=== PATIENT | male | born 1975 | race Caucasian/White ===

== ENCOUNTER 2021-02-11 12:02 | Inpatient (IN) ==
[2021-02-11] MEDS ORDERED: MOTRIN TAB 800 MG PO PRN ×2 (12:25→14:31)
[2021-02-11] MEDS ORDERED: MILK OF MAGNESIA PO PRN ×2 (12:25→14:31)
[2021-02-11] MEDS ORDERED: LIBRIUM PO PRN ×2 (12:25→14:31)
[2021-02-11] MEDS ORDERED: MAALOX or MYLANTA PO PRN ×2 (12:25→14:31)
[2021-02-11] MEDS ORDERED: KAOPECTATE (NEW FORMULA) PO PRN ×2 (12:25→14:31)
[2021-02-11] MEDS ORDERED: NS 1,000 ML IV 1,000 ML IV SCH (13:00)
[2021-02-11 13:02] LABS: BASOPHILS # (AUTO) 0.1 X10^3/uL (0.0-0.1); BASOPHILS % (AUTO) 0.4 % (0.2-1.0); EOSINOPHILS % (AUTO) 0.1 % (0.9-2.9); HEMOGLOBIN 14.1 g/dL (13.5-18.0); LYMPHOCYTES # (AUTO) 1.9 X10^3/uL (1.3-2.9); LYMPHOCYTES % (AUTO) 10.8 % (21.0-51.0); MEAN CORPUSCULAR HEMOGLOBIN 37.8 pg (27.0-34.0); MEAN CORPUSCULAR HGB CONC 34.4 g/dL (33.0-35.0); MEAN CORPUSCULAR VOLUME 109.9 fL (80.0-100.0); MEAN PLATELET VOLUME 8.5 fL (7.4-11.0); MONOCYTES # (AUTO) 1.5 x10^3/uL (0.3-0.8); MONOCYTES % (AUTO) 8.3 % (0.0-13.0); NEUTROPHILS # (AUTO) 14.1 x10^3/uL (2.2-4.8); NEUTROPHILS % (AUTO) 80.4 % (42.0-75.0); PLATELET COUNT 295 X10^3/uL (150.0-450.0); RED BLOOD COUNT 3.74 X10^6/uL (4.7-6.0); RED CELL DISTRIBUTION WIDTH 17.9 % (11.6-16.5); WHITE BLOOD COUNT 17.6 X10^3/uL (3.6-10.0)
[2021-02-11] MEDS ORDERED: ATIVAN INJ 2 MG VIAL IVP ONE (13:16)
[2021-02-11 13:25] LABS: ANISOCYTOSIS SLIGHT; PLATELET MORPHOLOGY COMMENT NORMAL (NORMAL)
[2021-02-11 13:27] LABS: ALANINE AMINOTRANSFERASE 58 Units/L (12-78); ALBUMIN 3.8 g/dL (3.4-5.0); ALKALINE PHOSPHATASE 72 Units/L (46-116); ASPARTATE AMINO TRANSFERASE 60 Units/L (15-37); BLOOD UREA NITROGEN 28 mg/dL (7-18); CARBON DIOXIDE 25.8 mmol/L (21-32); CHLORIDE 101 mmol/L (98-107); CKMB % 0.3 % (<4); CREATINE KINASE 340 Units/L (39-308); CREATINE KINASE MB < 1.0 ng/mL (0-4.0); MAGNESIUM 1.8 mg/dL (1.7-2.9); SODIUM 140 mmol/L (136-145); TOTAL PROTEIN 8.6 g/dL (6.4-8.2); TROPONIN I < 0.02 ng/mL (0-1.5)
[2021-02-11 13:42] LABS: CREATININE 1.91 mg/dL (0.70-1.30); eGFR NON BLACK RACES 41 (>60)
[2021-02-11 13:51] LABS: BLOOD ALCOHOL < 3.0 mg/dL (0-19.9)
[2021-02-11 14:00] VITALS: BMI 32.8
[2021-02-11] MEDS: ROCEPHIN 1 GRAM IV PREMIX 1 G/50 ML IV.SOLN. IV SCH (15:21)
[2021-02-11] MEDS: MVI IV SCH ×8 (15:22→23:11)
[2021-02-11] MEDS: THIAMINE HCL IV SCH ×8 (15:22→23:11)
[2021-02-11] MEDS: NS IV SCH ×8 (15:22→23:11)
[2021-02-11] MEDS: [UNRECOGNIZED DRUG - OTHER] IV SCH ×8 (15:22→23:11)
[2021-02-11 15:28] LABS: BILIRUBIN,URINE 2+ (NEGATIVE); BLOOD/HEMOGLOBIN,URINE 1+ (NEGATIVE); GLUCOSE, URINE NEGATIVE (NEGATIVE); KETONES,URINE 2+ (NEGATIVE); LEUKOCYTE ESTERASE ,URINE 1+ (NEGATIVE); NITRITES,URINE NEGATIVE (NEGATIVE); PROTEIN,URINE 3+ (NEGATIVE); UROBILINOGEN,URINE 3+ (NORMAL)
[2021-02-11 15:38] LABS: APPEARANCE,URINE CLOUDY (CLEAR); COLOR,URINE AMBER (YELLOW)
[2021-02-11 15:39] LABS: AMORPHOUS SEDIMENT,UR 2+ /HPF (NEGATIVE); BACTERIA,URINE TRACE /HPF (NEGATIVE); MUCUS,URINE NUMEROUS /HPF (NEGATIVE); SQUAMOUS EPITHELIAL CELL,UR FEW /HPF (NEGATIVE)
--- NOTE | 2021-02-11 16:19 | RAD ---
CHEST, 1 VIEWHISTORY: SHORTNESS OF BREATHStudy: Single view of the chest.Comparison:NoneFindings:The cardiomediastinal silhouette is normal.No focal consolidations, pleural effusions or pneumothorax. Osseous structures demonstrate no acute abnormality.IMPRESSION:1. No acute cardiopulmonary process.Electronically signed by: LANE IVY (Feb 11, 2021 16:17:45)
[2021-02-11] MEDS: PHENOBARBITAL SODIUM INJ 65 MG VIAL IM PRN ×2 (17:09→23:11)
[2021-02-11] MEDS: PHENOBARBITAL TAB 30 MG (32.4MG) PO SCH ×2 (17:09→20:08)
[2021-02-11] MEDS ORDERED: SOLU-Medrol 125 MG VIAL IVP ONE (18:18)
[2021-02-11] MEDS: VALIUM INJ IVP PRN (18:41)
[2021-02-11 19:19] LABS: CKMB % 0.3 % (<4); CREATINE KINASE 341 Units/L (39-308); CREATINE KINASE MB < 1.0 ng/mL (0-4.0); TROPONIN I < 0.02 ng/mL (0-1.5)
[2021-02-11] MEDS ORDERED: AMBIEN PO SCH (21:00)
[2021-02-11] MEDS ORDERED: PHENERGAN INJ 25 MG IM ONE (23:45)
[2021-02-11] MEDS ORDERED: ZOFRAN TAB 4 MG PO PRN (23:48)
[2021-02-12 01:30] LABS: CKMB % 0.2 % (<4); CREATINE KINASE 542 Units/L (39-308); CREATINE KINASE MB < 1.0 ng/mL (0-4.0); TROPONIN I < 0.02 ng/mL (0-1.5)
[2021-02-12] MEDS: THIAMINE HCL IV SCH ×16 (02:58→23:32)
[2021-02-12] MEDS: MVI IV SCH ×16 (02:58→23:32)
[2021-02-12] MEDS: NS IV SCH ×16 (02:58→23:32)
[2021-02-12] MEDS: [UNRECOGNIZED DRUG - OTHER] IV SCH ×16 (02:58→23:32)
--- NOTE | 2021-02-12 06:01 | RAD ---
HISTORYCough, shortness of breathSTUDYChest AP [id number] inflation accentuates the heart size. It is likely within normal limits. The yvonne are normal. The lung gregg are clear. No pleural effusions are identified. Bony thorax is unremarkable.IMPRESSIONNo significant abnormality identifiedElectronically signed by: NEWTON TEJEDA (Feb 12, 2021 05:59:04)
[2021-02-12 06:10] LABS: BASOPHILS % (AUTO) 0.1 % (0.2-1.0); HEMATOCRIT 38.9 % (42.0-54.0); HEMOGLOBIN 13.3 g/dL (13.5-18.0); LYMPHOCYTES # (AUTO) 1.1 X10^3/uL (1.3-2.9); LYMPHOCYTES % (AUTO) 6.6 % (21.0-51.0); MEAN CORPUSCULAR HEMOGLOBIN 37.5 pg (27.0-34.0); MEAN CORPUSCULAR HGB CONC 34.2 g/dL (33.0-35.0); MEAN CORPUSCULAR VOLUME 109.6 fL (80.0-100.0); MEAN PLATELET VOLUME 9.1 fL (7.4-11.0); MONOCYTES # (AUTO) 0.6 x10^3/uL (0.3-0.8); MONOCYTES % (AUTO) 3.9 % (0.0-13.0); NEUTROPHILS # (AUTO) 14.4 x10^3/uL (2.2-4.8); NEUTROPHILS % (AUTO) 89.4 % (42.0-75.0); PLATELET COUNT 282 X10^3/uL (150.0-450.0); RED BLOOD COUNT 3.55 X10^6/uL (4.7-6.0); WHITE BLOOD COUNT 16.1 X10^3/uL (3.6-10.0)
[2021-02-12 06:42] LABS: ALANINE AMINOTRANSFERASE 52 Units/L (12-78); ALBUMIN 3.5 g/dL (3.4-5.0); ALKALINE PHOSPHATASE 63 Units/L (46-116); ASPARTATE AMINO TRANSFERASE 56 Units/L (15-37); BLOOD UREA NITROGEN 42 mg/dL (7-18); CALCIUM 9.1 mg/dL (8.5-10.1); CHLORIDE 99 mmol/L (98-107); COR NA(FOR HYPERGLY) 141 mmol/L (136-145); CREATININE 1.99 mg/dL (0.70-1.30); MAGNESIUM 1.7 mg/dL (1.7-2.9); SODIUM 140 mmol/L (136-145); eGFR NON BLACK RACES 39 (>60)
[2021-02-12] MEDS ORDERED: POTASSIUM CHL 60 MEQ/NS 0.45% 500 ML IV PRN (06:46)
[2021-02-12] MEDS ORDERED: K-RIDER 10 MEQ/NS 100 ML 10 MEQ/100 ML BAG IV PRN (06:46)
[2021-02-12] MEDS ORDERED: POTASSIUM CHLORIDE LIQ 20 MEQ UDC PO PRN (06:46)
[2021-02-12] MEDS ORDERED: MICRO K EXTEN CAP 10 MEQ PO PRN (06:46)
[2021-02-12] MEDS ORDERED: K-DUR TAB 20 MEQ PO PRN (06:46)
[2021-02-12] MEDS ORDERED: POTASSIUM CHL 40 MEQ/NS 0.45% 500 ML IV PRN (06:46)
[2021-02-12] MEDS: PHENOBARBITAL SODIUM INJ 65 MG VIAL IM PRN (07:08)
[2021-02-12 07:30] LABS: PLATELET MORPHOLOGY COMMENT NORMAL (NORMAL)
[2021-02-12 07:31] LABS: ANISOCYTOSIS SLIGHT
[2021-02-12] MEDS: ROCEPHIN 1 GRAM IV PREMIX 1 G/50 ML IV.SOLN. IV SCH (08:41)
[2021-02-12] MEDS: PHENOBARBITAL TAB 30 MG (32.4MG) PO SCH ×4 (08:41→20:47)
[2021-02-12] MEDS: SOLU-Medrol 40 MG VIAL IVP SCH ×2 (08:42→20:47)
[2021-02-12] MEDS: VALIUM INJ IVP PRN ×2 (08:42→20:48)
[2021-02-12] MEDS ORDERED: HALDOL INJ ONE (09:36)
[2021-02-12] MEDS: HALDOL INJ IM ONE ×2 (09:45→10:02)
[2021-02-12] MEDS: KLOR-CON PO PRN (11:32)
--- NOTE | 2021-02-12 11:44 | DR.H&P ---
H&P History & Physical for Day of: H&P Date: 02/11/21 Chief Complaint Chief Complaint: AMS/ SOB/Nonproductive cough Allergies Allergies Allergy/AdvReac Type Severity Reaction Status Date / Time No Known Drug Allergies Allergy Verified 02/11/21 13:01 History of Present Illness History of Present Illness: 45 year old WM with 2 weeks history of cough and increasing SOB. His mother brought him to my office because she said he was talking out of his head. Upon questioning him he did state it had been 4 days since he last drank ETOH. I know him to be a heavy drinker and thought it best to admit him to hospital for inpatient ETOH detox and to also check for a source of his coughing and low grade fever. Patient is having audible hallucinations in my office today. Past Medical History Past Medical History: Depression, Migraines, Headaches and Hypertension Past Surgical History Surgical History: Ortho Surgery (Right distal biceps tendon repair/reattachment) Family History Family Medical History: Hypertension Social History Does patient currently use any type of tobacco product: Yes Have you used tobacco products in the last 12 months: Yes Type of Tobacco Use: Cigarettes How many years tobacco product used: 30 Does any household member use tobacco: No Alcohol Use: DAILY Drug Use: Prescription Drugs Medications Home Medications: No Known Drug Allergies Allergy (Verified 02/11/21 13:01) Labs Result Diagrams: 02/12/21 05:06 02/12/21 10:14 Labs: 02/11/21 15:36 Sputum - Expectorated Sputum Sputum Culture - Preliminary 02/11/21 15:36 Sputum - Expectorated Sputum - Final 02/11/21 15:20 Urine,Clean Catch Urine Culture - Preliminary Laboratory WBC 16.1 X10^3/uL (3.6-10.0) H 02/12/21 05:06 RBC 3.55 X10^6/uL (4.7-6.0) L 02/12/21 05:06 Hgb 13.3 g/dL (13.5-18.0) L 02/12/21 05:06 Hct 38.9 % (42.0-54.0) L 02/12/21 05:06 MCV 109.6 fL (80.0-100.0) H 02/12/21 05:06 MCH 37.5 pg (27.0-34.0) H 02/12/21 05:06 MCHC 34.2 g/dL (33.0-35.0) 02/12/21 05:06 RDW 18.0 % (11.6-16.5) H 02/12/21 05:06 Plt Count 282 X10^3/uL (150.0-450.0) 02/12/21 05:06 Plt Count Comment Adequate (ADEQUATE) 02/12/21 05:06 MPV 9.1 fL (7.4-11.0) 02/12/21 05:06 Neut % (Auto) 89.4 % (42.0-75.0) H 02/12/21 05:06 Lymph % (Auto) 6.6 % (21.0-51.0) L 02/12/21 05:06 [place] % (Auto) 3.9 % (0.0-13.0) 02/12/21 05:06 Eos % (Auto) 0.0 % (0.9-2.9) L 02/12/21 05:06 Baso % (Auto) 0.1 % (0.2-1.0) L 02/12/21 05:06 Neut # (Auto) 14.4 x10^3/uL (2.2-4.8) H 02/12/21 05:06 Lymph # (Auto) 1.1 X10^3/uL (1.3-2.9) L 02/12/21 05:06 [place] # (Auto) 0.6 x10^3/uL (0.3-0.8) 02/12/21 05:06 Eos # (Auto) 0.0 x10^3/uL (0.0-0.2) 02/12/21 05:06 Baso # (Auto) 0.0 X10^3/uL (0.0-0.1) 02/12/21 05:06 Absolute Nucleated RBC 0.2 /100WBC 02/12/21 05:06 Plt Morphology Comment Normal (NORMAL) 02/12/21 05:06 RBC Morphology Abnormal (NORMAL) 02/12/21 05:06 Anisocytosis Slight A 02/12/21 05:06 Microcytosis Environmental Communications Specialist 02/11/21 12:50 Macrocytosis 1+ A 02/12/21 05:06 Sodium 140 mmol/L (136-145) 02/12/21 05:06 Corrected Sodium 141 mmol/L (136-145) 02/12/21 05:06 Potassium 3.0 mmol/L (3.5-5.1) L* 02/12/21 10:14 Chloride 99 mmol/L (98-107) 02/12/21 05:06 Carbon Dioxide 23.0 mmol/L (21-32) 02/12/21 05:06 BUN 42 mg/dL (7-18) H 02/12/21 05:06 Creatinine 1.99 mg/dL (0.70-1.30) H 02/12/21 05:06 Est GFR (MDRD) Af Amer 47 (>60) L 02/12/21 05:06 Est GFR (MDRD) Non-Af 39 (>60) L 02/12/21 05:06 Glucose 143 mg/dL (65-99) H 02/12/21 05:06 Lactic Acid 1.8 mmol/L (0.4-2.0) 02/11/21 12:50 Calcium 9.1 mg/dL (8.5-10.1) 02/12/21 05:06 Corrected Calcium TNP 02/12/21 05:06 Magnesium 1.7 mg/dL (1.7-2.9) 02/12/21 05:06 Magnesium 1.8 mg/dL (1.7-2.9) 02/12/21 05:06 Total Bilirubin 1.30 mg/dL (0.2-1.0) H 02/12/21 05:06 AST 56 Units/L (15-37) H 02/12/21 05:06 ALT 52 Units/L (12-78) 02/12/21 05:06 Alkaline Phosphatase 63 Units/L (46-116) 02/12/21 05:06 Creatine Kinase 542 Units/L (39-308) H 02/12/21 00:54 CK-MB (CK-2) < 1.0 ng/mL (0-4.0) 02/12/21 00:54 CK/CKMB % Calc 0.2 % (<4) 02/12/21 00:54 Troponin I < 0.02 ng/mL (0-1.5) 02/12/21 00:54 Total Protein 8.0 g/dL (6.4-8.2) 02/12/21 05:06 Albumin 3.5 g/dL (3.4-5.0) 02/12/21 05:06 Globulin 4.5 g/dL (2.5-4.5) 02/12/21 05:06 Albumin/Globulin Ratio 0.8 Ratio (1.1-2.1) L 02/12/21 05:06 Specimen Type Clean catch urine 02/11/21 15:00 Urine Color Lanny (YELLOW) 02/11/21 15:00 Urine Appearance Cloudy (CLEAR) 02/11/21 15:00 Urine pH 5.0 (5.0 - 8.0) 02/11/21 15:00 Ur Specific [place] 1.020 (1.000-1.030) 02/11/21 15:00 Urine Protein 3+ (NEGATIVE) 02/11/21 15:00 Urine Glucose (UA) Negative (NEGATIVE) 02/11/21 15:00 Urine Ketones 2+ (NEGATIVE) 02/11/21 15:00 Urine Occult Blood 1+ (NEGATIVE) 02/11/21 15:00 Urine Nitrite Negative (NEGATIVE) 02/11/21 15:00 Urine Bilirubin 2+ (NEGATIVE) 02/11/21 15:00 Urine Urobilinogen 3+ (NORMAL) 02/11/21 15:00 Ur Leukocyte Esterase 1+ (NEGATIVE) 02/11/21 15:00 Urine RBC 5-10 /HPF (0-3) A 02/11/21 15:00 Urine WBC 5-10 /HPF (0-5) A 02/11/21 15:00 Ur Squamous Epith Cells Few /HPF (NEGATIVE) 02/11/21 15:00 Amorphous Sediment 2+ /HPF (NEGATIVE) 02/11/21 15:00 Urine Bacteria Trace /HPF (NEGATIVE) 02/11/21 15:00 Urine Mucus Numerous /HPF (NEGATIVE) 02/11/21 15:00 Ur Culture Indicated? No/not indicated 02/11/21 15:00 Urine Opiates Screen Positive (NEG=<300) 02/11/21 15:00 Urine Methadone Screen Negative (NEG=<300) 02/11/21 15:00 Ur Barbiturates Screen Negative (NEG=<200) 02/11/21 15:00 Ur Phencyclidine Scrn Negative (NEG=<25) 02/11/21 15:00 Ur Amphetamines Screen Negative (NEG=<1000) 02/11/21 15:00 U Benzodiazepines Scrn Positive (NEG=<200) 02/11/21 15:00 Urine Cocaine Screen Negative (NEG=<300) 02/11/21 15:00 U Marijuana (THC) Screen Negative (NEG=<50) 02/11/21 15:00 Ethyl Alcohol mg/dL < 3.0 mg/dL (0-19.9) 02/11/21 12:50 Review of Systems Constitutional: Fever, Chills, Sweats and Weakness ENT: No Symptoms Reported Respiratory: Cough and SOB with Excertion Gastrointestinal: Nausea, Vomiting, Abdominal Pain and Diarrhea Genitourinary: No Symptoms Reported Musculoskeletal: Arm Pain Skin: No Symptoms Reported Neurological: Weakness, Incoordination and Confusion Physical Exam Vital Signs: Temperature 98.7 F Pulse Rate [Bilateral Radial] 122 Respiratory Rate 20 Blood Pressure [Right Arm] 175/93 O2 Sat by Pulse Oximetry 91 Oriented: Not Oriented Eyes: Normal Ear: Normal Nose: Normal Throat: Normal Respiratory: Clear Throughout Cardiovascular: Tachycardia : Normal Auscultation: Bowel Sounds: Normal Palpation: Normal Tenderness: RLQ, LUQ, LLQ and Mild Skin: Diaphoresis Musculoskeletal: Normal Psychiatric: Anxiety and Agitation Mood Description: Suspicious and Anxious Affect: Anxious and Hysterical Speech Pattern: Unclear Assessment/Plan (1) AMS (altered mental status): Narrative Support Text: Suspect due to ETOH detox and or Opioid detox or both. Status: Acute Plan: Monitor for improvment. (2) Alcohol use disorder: Status: Acute Plan: Alcohol Detox protocol with IV PRN Valium. (3) Alcohol withdrawal hallucinosis: Narrative Support Text: Needs inpatient detox to avoid seizures since patient seems to be having quite significant detox symptoms. Status: Acute Plan: Alcohol detox protocol. Phenobarbital loading for seizure prevention. (4) Cough: Status: Acute Plan: check CXR. (5) Low grade fever: Status: Acute Plan: Will check for infection with Blood cultures, sputum cultures, UA and CXR. Review H&P Reviewed: Yes Patient was examined?: Yes
--- NOTE | 2021-02-12 12:02 | PCM.PROG ---
Progress Note Progress Note for Day of Date of Exam: 02/12/21 Subjective Subjective: Patient has been agitated off and on since admission. The IV Valium seems to help but only for a short time. Last night he vomited multiple time and was given IM Phenergan 25 mg and also Zofran was ordered. Yesterdays labs showed a leukocytosis of 17,000 and 16,000 this am. Volume contraction noted on yesterdays labs and is slightly worse this am with worsening rhabdomyolysis. He was given NS at 125 ml/hr. He reports this morning he didn't sleep at all. As the morning progressed he became paranoid and was walking the halls and refused IM Haldol until I spoke with him. He did end up taking it after we spoke. Potassium is noted to be low this am and he was started on replacement protocol. Past Medical Family Social History Past Med/Fam/Surg Hx: No changes since H&P Allergies: Allergies No Known Drug Allergies Allergy (Verified 02/11/21 13:01) Vital Signs and I&O's Vital Signs: Temperature 99.4 F Pulse Rate [Bilateral Radial] 102 Respiratory Rate 20 Blood Pressure [Right Arm] 124/94 O2 Sat by Pulse Oximetry 92 Intake and Output: Intake & Output 02/09/21 02/10/21 02/11/21 02/12/21 11:59 11:59 11:59 11:59 Intake Total 1467 / 1467 Output Total 800 / 800 Balance 667 / 667 Physical Exam Oriented: Not Oriented Eyes: Normal Ear: Normal Nose: Normal Throat: Normal Cardiovascular: Tachycardia : Normal Auscultation: Bowel Sounds: Normal Tenderness: RLQ, LUQ, LLQ and Mild Skin: Diaphoresis Musculoskeletal: Normal Psychiatric: Anxiety and Agitation Mood Description: Suspicious and Anxious Affect: Anxious and Hysterical Speech Pattern: Unclear Laboratory and Diagnostics Result Diagrams: 02/12/21 05:06 02/12/21 10:14 Labs: 02/11/21 15:36 Sputum - Expectorated Sputum Sputum Culture - Preliminary 02/11/21 15:36 Sputum - Expectorated Sputum - Final 02/11/21 15:20 Urine,Clean Catch Urine Culture - Preliminary Laboratory WBC 16.1 X10^3/uL (3.6-10.0) H 02/12/21 05:06 RBC 3.55 X10^6/uL (4.7-6.0) L 02/12/21 05:06 Hgb 13.3 g/dL (13.5-18.0) L 02/12/21 05:06 Hct 38.9 % (42.0-54.0) L 02/12/21 05:06 MCV 109.6 fL (80.0-100.0) H 02/12/21 05:06 MCH 37.5 pg (27.0-34.0) H 02/12/21 05:06 MCHC 34.2 g/dL (33.0-35.0) 02/12/21 05:06 RDW 18.0 % (11.6-16.5) H 02/12/21 05:06 Plt Count 282 X10^3/uL (150.0-450.0) 02/12/21 05:06 Plt Count Comment Adequate (ADEQUATE) 02/12/21 05:06 MPV 9.1 fL (7.4-11.0) 02/12/21 05:06 Neut % (Auto) 89.4 % (42.0-75.0) H 02/12/21 05:06 Lymph % (Auto) 6.6 % (21.0-51.0) L 02/12/21 05:06 [place] % (Auto) 3.9 % (0.0-13.0) 02/12/21 05:06 Eos % (Auto) 0.0 % (0.9-2.9) L 02/12/21 05:06 Baso % (Auto) 0.1 % (0.2-1.0) L 02/12/21 05:06 Neut # (Auto) 14.4 x10^3/uL (2.2-4.8) H 02/12/21 05:06 Lymph # (Auto) 1.1 X10^3/uL (1.3-2.9) L 02/12/21 05:06 [place] # (Auto) 0.6 x10^3/uL (0.3-0.8) 02/12/21 05:06 Eos # (Auto) 0.0 x10^3/uL (0.0-0.2) 02/12/21 05:06 Baso # (Auto) 0.0 X10^3/uL (0.0-0.1) 02/12/21 05:06 Absolute Nucleated RBC 0.2 /100WBC 02/12/21 05:06 Plt Morphology Comment Normal (NORMAL) 02/12/21 05:06 RBC Morphology Abnormal (NORMAL) 02/12/21 05:06 Anisocytosis Slight A 02/12/21 05:06 Microcytosis [employer] Machine Operator 02/11/21 12:50 Macrocytosis 1+ A 02/12/21 05:06 Sodium 140 mmol/L (136-145) 02/12/21 05:06 Corrected Sodium 141 mmol/L (136-145) 02/12/21 05:06 Potassium 3.0 mmol/L (3.5-5.1) L* 02/12/21 10:14 Chloride 99 mmol/L (98-107) 02/12/21 05:06 Carbon Dioxide 23.0 mmol/L (21-32) 02/12/21 05:06 BUN 42 mg/dL (7-18) H 02/12/21 05:06 Creatinine 1.99 mg/dL (0.70-1.30) H 02/12/21 05:06 Est GFR (MDRD) Af Amer 47 (>60) L 02/12/21 05:06 Est GFR (MDRD) Non-Af 39 (>60) L 02/12/21 05:06 Glucose 143 mg/dL (65-99) H 02/12/21 05:06 Lactic Acid 1.8 mmol/L (0.4-2.0) 02/11/21 12:50 Calcium 9.1 mg/dL (8.5-10.1) 02/12/21 05:06 Corrected Calcium TNP 02/12/21 05:06 Magnesium 1.7 mg/dL (1.7-2.9) 02/12/21 05:06 Magnesium 1.8 mg/dL (1.7-2.9) 02/12/21 05:06 Total Bilirubin 1.30 mg/dL (0.2-1.0) H 02/12/21 05:06 AST 56 Units/L (15-37) H 02/12/21 05:06 ALT 52 Units/L (12-78) 02/12/21 05:06 Alkaline Phosphatase 63 Units/L (46-116) 02/12/21 05:06 Creatine Kinase 542 Units/L (39-308) H 02/12/21 00:54 CK-MB (CK-2) < 1.0 ng/mL (0-4.0) 02/12/21 00:54 CK/CKMB % Calc 0.2 % (<4) 02/12/21 00:54 Troponin I < 0.02 ng/mL (0-1.5) 02/12/21 00:54 Total Protein 8.0 g/dL (6.4-8.2) 02/12/21 05:06 Albumin 3.5 g/dL (3.4-5.0) 02/12/21 05:06 Globulin 4.5 g/dL (2.5-4.5) 02/12/21 05:06 Albumin/Globulin Ratio 0.8 Ratio (1.1-2.1) L 02/12/21 05:06 Specimen Type Clean catch urine 02/11/21 15:00 Urine Color [place] (YELLOW) 02/11/21 15:00 Urine Appearance Cloudy (CLEAR) 02/11/21 15:00 Urine pH 5.0 (5.0 - 8.0) 02/11/21 15:00 Ur Specific [place] 1.020 (1.000-1.030) 02/11/21 15:00 Urine Protein 3+ (NEGATIVE) 02/11/21 15:00 Urine Glucose (UA) Negative (NEGATIVE) 02/11/21 15:00 Urine Ketones 2+ (NEGATIVE) 02/11/21 15:00 Urine Occult Blood 1+ (NEGATIVE) 02/11/21 15:00 Urine Nitrite Negative (NEGATIVE) 02/11/21 15:00 Urine Bilirubin 2+ (NEGATIVE) 02/11/21 15:00 Urine Urobilinogen 3+ (NORMAL) 02/11/21 15:00 Ur Leukocyte Esterase 1+ (NEGATIVE) 02/11/21 15:00 Urine RBC 5-10 /HPF (0-3) A 02/11/21 15:00 Urine WBC 5-10 /HPF (0-5) A 02/11/21 15:00 Ur Squamous Epith Cells Few /HPF (NEGATIVE) 02/11/21 15:00 Amorphous Sediment 2+ /HPF (NEGATIVE) 02/11/21 15:00 Urine Bacteria Trace /HPF (NEGATIVE) 02/11/21 15:00 Urine Mucus Numerous /HPF (NEGATIVE) 02/11/21 15:00 Ur Culture Indicated? No/not indicated 02/11/21 15:00 Urine Opiates Screen Positive (NEG=<300) 02/11/21 15:00 Urine Methadone Screen Negative (NEG=<300) 02/11/21 15:00 Ur Barbiturates Screen Negative (NEG=<200) 02/11/21 15:00 Ur Phencyclidine Scrn Negative (NEG=<25) 02/11/21 15:00 Ur Amphetamines Screen Negative (NEG=<1000) 02/11/21 15:00 U Benzodiazepines Scrn Positive (NEG=<200) 02/11/21 15:00 Urine Cocaine Screen Negative (NEG=<300) 02/11/21 15:00 U Marijuana (THC) Screen Negative (NEG=<50) 02/11/21 15:00 Ethyl Alcohol mg/dL < 3.0 mg/dL (0-19.9) 02/11/21 12:50 Plan (1) AMS (altered mental status): Status: Acute Plan: Monitor for improvment. (2) Alcohol use disorder: Status: Acute Plan: Alcohol Detox protocol with IV PRN Valium. (3) Alcohol withdrawal hallucinosis: Status: Acute Plan: Alcohol detox protocol. Phenobarbital loading for seizure prevention. (4) Cough: Status: Acute Plan: check CXR. (5) Low grade fever: Status: Acute Narrative Support Text: CXR and UA wnl. Plan: Will check for infection with Blood cultures, sputum cultures, UA and CXR. Rocephin was started after cultures were done for prophylactic coverage. (6) Hypokalemia due to excessive gastrointestinal loss of potassium: Status: Acute Plan: Potassium replacement protocol. (7) Rhabdomyolysis: Status: Acute Plan: Increase IVF to 150 ml/hr. Check CK in am. (8) Agitation: Status: Acute Plan: IM Haldol x 1 and start patient on Geodon 20 mg Qday.
[2021-02-12] MEDS: GEODON PO SCH (12:27)
[2021-02-12] MEDS: TOPROL XL PO SCH (12:27)
[2021-02-12] MEDS: MAGNESIUM SULFATE 1 GRAM/100 mL PREMIX 1 G/100 ML BAG IV PRN ×2 (16:20→17:20)
[2021-02-12] MEDS ORDERED: MAGNESIUM SULFATE 50% INJ VIAL ONE (19:57)
[2021-02-12] MEDS ORDERED: THIAMINE HCL INJ ONE (19:57)
[2021-02-12] MEDS: AMBIEN PO SCH (20:47)
[2021-02-13] MEDS ORDERED: MAGNESIUM SULFATE 50% INJ VIAL ONE ×3 (04:19→17:18)
[2021-02-13] MEDS ORDERED: NS 1,000 ML IV 1,000 ML ONE ×3 (04:19→17:18)
[2021-02-13] MEDS ORDERED: THIAMINE HCL INJ ONE ×3 (04:19→17:18)
[2021-02-13] MEDS ORDERED: MVI INJ (ADULT) IV ONE ×2 (04:27→17:04)
[2021-02-13 05:34] LABS: BASOPHILS % (AUTO) 0.1 % (0.2-1.0); HEMATOCRIT 35.8 % (42.0-54.0); HEMOGLOBIN 12.3 g/dL (13.5-18.0); MEAN CORPUSCULAR HEMOGLOBIN 37.5 pg (27.0-34.0); MEAN CORPUSCULAR HGB CONC 34.3 g/dL (33.0-35.0); MEAN CORPUSCULAR VOLUME 109.4 fL (80.0-100.0); MEAN PLATELET VOLUME 8.8 fL (7.4-11.0); MONOCYTES # (AUTO) 0.9 x10^3/uL (0.3-0.8); MONOCYTES % (AUTO) 5.4 % (0.0-13.0); NEUTROPHILS # (AUTO) 15.2 x10^3/uL (2.2-4.8); NEUTROPHILS % (AUTO) 88.5 % (42.0-75.0); PLATELET COUNT 252 X10^3/uL (150.0-450.0); RED BLOOD COUNT 3.27 X10^6/uL (4.7-6.0); WHITE BLOOD COUNT 17.2 X10^3/uL (3.6-10.0)
[2021-02-13 05:56] LABS: ALANINE AMINOTRANSFERASE 46 Units/L (12-78); ALBUMIN 3.2 g/dL (3.4-5.0); ALKALINE PHOSPHATASE 55 Units/L (46-116); ASPARTATE AMINO TRANSFERASE 61 Units/L (15-37); BLOOD UREA NITROGEN 31 mg/dL (7-18); CALCIUM 8.4 mg/dL (8.5-10.1); CARBON DIOXIDE 24.3 mmol/L (21-32); CHLORIDE 106 mmol/L (98-107); COR NA(FOR HYPERGLY) 142 mmol/L (136-145); CREATININE 0.93 mg/dL (0.70-1.30); MAGNESIUM 2.9 mg/dL (1.7-2.9); SODIUM 141 mmol/L (136-145); TOTAL PROTEIN 7.3 g/dL (6.4-8.2); eGFR NON BLACK RACES > 60 (>60)
[2021-02-13 05:57] LABS: CREATINE KINASE 1443 Units/L (39-308)
[2021-02-13 06:15] LABS: PLATELET MORPHOLOGY COMMENT NORMAL (NORMAL)
[2021-02-13] MEDS: NS IV SCH ×16 (06:28→18:08)
[2021-02-13] MEDS: MVI IV SCH ×16 (06:28→18:08)
[2021-02-13] MEDS: THIAMINE HCL IV SCH ×16 (06:28→18:08)
[2021-02-13] MEDS: [UNRECOGNIZED DRUG - OTHER] IV SCH ×8 (06:28→15:10)
[2021-02-13] MEDS: SOLU-Medrol 40 MG VIAL IVP SCH ×2 (08:35→20:39)
[2021-02-13] MEDS: ROCEPHIN 1 GRAM IV PREMIX 1 G/50 ML IV.SOLN. IV SCH (08:35)
[2021-02-13] MEDS: TOPROL XL PO SCH (08:35)
[2021-02-13] MEDS: PHENOBARBITAL TAB 30 MG (32.4MG) PO SCH ×4 (08:35→20:39)
[2021-02-13] MEDS: VALIUM INJ IVP PRN ×2 (08:35→20:40)
[2021-02-13] MEDS: GEODON PO SCH (08:35)
--- NOTE | 2021-02-13 09:40 | PCM.PROG ---
Progress Note Progress Note for Day of Date of Exam: 02/13/21 Subjective Subjective: Patient is doing better this am. He rested after Haldol was given yesterday and he slept better last pm. Electrolytes have normalized but his rhabdomyolysis has worsened. His agitation and confusion have resolved. He is back to his normal baseline behavior. Past Medical Family Social History Past Med/Fam/Surg Hx: No changes since H&P Allergies: Allergies No Known Drug Allergies Allergy (Verified 02/11/21 13:01) Vital Signs and I&O's Vital Signs: Temperature 98.1 F Pulse Rate [Bilateral Radial] 91 Respiratory Rate 22 Blood Pressure [Right Arm] 164/78 O2 Sat by Pulse Oximetry 93 Intake and Output: Intake & Output 02/10/21 02/11/21 02/12/21 02/13/21 11:59 11:59 11:59 11:59 Intake Total 1467 / 1467 4071 / 4071 Output Total 800 / 800 1095 / 1095 Balance 667 / 667 2976 / 2976 Physical Exam Oriented: Normal Eyes: Normal Ear: Normal Nose: Normal Throat: Normal Cardiovascular: Normal : Normal Auscultation: Bowel Sounds: Normal Tenderness: Normal Skin: Normal Musculoskeletal: Normal Psychiatric: Anxiety Mood Description: Calm and Anxious Affect: Anxious Speech Pattern: Clear and Appropriate Laboratory and Diagnostics Result Diagrams: 02/13/21 04:24 02/13/21 04:24 Labs: 02/11/21 15:20 Urine,Clean Catch Urine Culture - Final 02/11/21 15:36 Sputum - Expectorated Sputum Sputum Culture - Preliminary 02/11/21 15:36 Sputum - Expectorated Sputum - Final Laboratory WBC 17.2 X10^3/uL (3.6-10.0) H 02/13/21 04:24 RBC 3.27 X10^6/uL (4.7-6.0) L 02/13/21 04:24 Hgb 12.3 g/dL (13.5-18.0) L 02/13/21 04:24 Hct 35.8 % (42.0-54.0) L 02/13/21 04:24 MCV 109.4 fL (80.0-100.0) H 02/13/21 04:24 MCH 37.5 pg (27.0-34.0) H 02/13/21 04:24 MCHC 34.3 g/dL (33.0-35.0) 02/13/21 04:24 RDW 18.0 % (11.6-16.5) H 02/13/21 04:24 Plt Count 252 X10^3/uL (150.0-450.0) 02/13/21 04:24 Plt Count Comment Adequate (ADEQUATE) 02/13/21 04:24 MPV 8.8 fL (7.4-11.0) 02/13/21 04:24 Neut % (Auto) 88.5 % (42.0-75.0) H 02/13/21 04:24 Lymph % (Auto) 6.0 % (21.0-51.0) L 02/13/21 04:24 [place] % (Auto) 5.4 % (0.0-13.0) 02/13/21 04:24 Eos % (Auto) 0.0 % (0.9-2.9) L 02/13/21 04:24 Baso % (Auto) 0.1 % (0.2-1.0) L 02/13/21 04:24 Neut # (Auto) 15.2 x10^3/uL (2.2-4.8) H 02/13/21 04:24 Lymph # (Auto) 1.0 X10^3/uL (1.3-2.9) L 02/13/21 04:24 [place] # (Auto) 0.9 x10^3/uL (0.3-0.8) H 02/13/21 04:24 Eos # (Auto) 0.0 x10^3/uL (0.0-0.2) 02/13/21 04:24 Baso # (Auto) 0.0 X10^3/uL (0.0-0.1) 02/13/21 04:24 Absolute Nucleated RBC 0.0 /100WBC 02/13/21 04:24 Plt Morphology Comment Normal (NORMAL) 02/13/21 04:24 RBC Morphology Abnormal (NORMAL) 02/13/21 04:24 Anisocytosis Slight A 02/12/21 05:06 Microcytosis [employer] Specialists 02/11/21 12:50 Macrocytosis 1+ A 02/13/21 04:24 Sodium 141 mmol/L (136-145) 02/13/21 04:24 Corrected Sodium 142 mmol/L (136-145) 02/13/21 04:24 Potassium 4.0 mmol/L (3.5-5.1) 02/13/21 04:24 Chloride 106 mmol/L (98-107) 02/13/21 04:24 Carbon Dioxide 24.3 mmol/L (21-32) 02/13/21 04:24 BUN 31 mg/dL (7-18) H 02/13/21 04:24 Creatinine 0.93 mg/dL (0.70-1.30) 02/13/21 04:24 Est GFR (MDRD) Af Amer > 60 (>60) 02/13/21 04:24 Est GFR (MDRD) Non-Af > 60 (>60) 02/13/21 04:24 Glucose 132 mg/dL (65-99) H 02/13/21 04:24 Lactic Acid 1.8 mmol/L (0.4-2.0) 02/11/21 12:50 Calcium 8.4 mg/dL (8.5-10.1) L 02/13/21 04:24 Corrected Calcium 9.0 mg/dL (8.5-10.1) 02/13/21 04:24 Magnesium 2.9 mg/dL (1.7-2.9) 02/13/21 04:24 Total Bilirubin 0.90 mg/dL (0.2-1.0) 02/13/21 04:24 AST 61 Units/L (15-37) H 02/13/21 04:24 ALT 46 Units/L (12-78) 02/13/21 04:24 Alkaline Phosphatase 55 Units/L (46-116) 02/13/21 04:24 Creatine Kinase 1443 Units/L (39-308) H 02/13/21 04:24 CK-MB (CK-2) < 1.0 ng/mL (0-4.0) 02/12/21 00:54 CK/CKMB % Calc 0.2 % (<4) 02/12/21 00:54 Troponin I < 0.02 ng/mL (0-1.5) 02/12/21 00:54 Total Protein 7.3 g/dL (6.4-8.2) 02/13/21 04:24 Albumin 3.2 g/dL (3.4-5.0) L 02/13/21 04:24 Globulin 4.1 g/dL (2.5-4.5) 02/13/21 04:24 Albumin/Globulin Ratio 0.8 Ratio (1.1-2.1) L 02/13/21 04:24 Specimen Type Clean catch urine 02/11/21 15:00 Urine Color [place] (YELLOW) 02/11/21 15:00 Urine Appearance Cloudy (CLEAR) 02/11/21 15:00 Urine pH 5.0 (5.0 - 8.0) 02/11/21 15:00 Ur Specific [place] 1.020 (1.000-1.030) 02/11/21 15:00 Urine Protein 3+ (NEGATIVE) 02/11/21 15:00 Urine Glucose (UA) Negative (NEGATIVE) 02/11/21 15:00 Urine Ketones 2+ (NEGATIVE) 02/11/21 15:00 Urine Occult Blood 1+ (NEGATIVE) 02/11/21 15:00 Urine Nitrite Negative (NEGATIVE) 02/11/21 15:00 Urine Bilirubin 2+ (NEGATIVE) 02/11/21 15:00 Urine Urobilinogen 3+ (NORMAL) 02/11/21 15:00 Ur Leukocyte Esterase 1+ (NEGATIVE) 02/11/21 15:00 Urine RBC 5-10 /HPF (0-3) A 02/11/21 15:00 Urine WBC 5-10 /HPF (0-5) A 02/11/21 15:00 Ur Squamous Epith Cells Few /HPF (NEGATIVE) 02/11/21 15:00 Amorphous Sediment 2+ /HPF (NEGATIVE) 02/11/21 15:00 Urine Bacteria Trace /HPF (NEGATIVE) 02/11/21 15:00 Urine Mucus Numerous /HPF (NEGATIVE) 02/11/21 15:00 Ur Culture Indicated? No/not indicated 02/11/21 15:00 Urine Opiates Screen Positive (NEG=<300) 02/11/21 15:00 Urine Methadone Screen Negative (NEG=<300) 02/11/21 15:00 Ur Barbiturates Screen Negative (NEG=<200) 02/11/21 15:00 Ur Phencyclidine Scrn Negative (NEG=<25) 02/11/21 15:00 Ur Amphetamines Screen Negative (NEG=<1000) 02/11/21 15:00 U Benzodiazepines Scrn Positive (NEG=<200) 02/11/21 15:00 Urine Cocaine Screen Negative (NEG=<300) 02/11/21 15:00 U Marijuana (THC) Screen Negative (NEG=<50) 02/11/21 15:00 Ethyl Alcohol mg/dL < 3.0 mg/dL (0-19.9) 02/11/21 12:50 Plan (1) Rhabdomyolysis: Status: Acute Qualifiers: Rhabdomyolysis type: non-traumatic Qualified Code(s): M62.82 - Rhab domyolysis Narrative Support Text: Worse this am. Plan: IVF at 150 ml/hr. Check CK in am. Will plan on discharge home in am if rhabdomyolysis has improved or resolved. (2) Leukocytosis: Status: Acute Plan: Follow up blood and sputum cultures. (3) AMS (altered mental status): Status: Resolved Qualifiers: Altered mental status type: delirium Qualified Code(s): R41.0 - Disorientation, unspecified Plan: Monitor for improvment. (4) Alcohol use disorder: Status: Acute Plan: Alcohol Detox protocol with IV PRN Valium. (5) Alcohol withdrawal hallucinosis: Status: Resolved Plan: Alcohol detox protocol. Phenobarbital loading for seizure prevention. (6) Cough: Status: Acute Plan: check CXR. (7) Low grade fever: Status: Resolved Plan: Will check for infection with Blood cultures, sputum cultures, UA and CXR. Rocephin was started after cultures were done for prophylactic coverage. (8) Hypokalemia due to excessive gastrointestinal loss of potassium: Status: Acute Plan: Potassium replacement protocol. (9) Agitation: Status: Resolved Plan: Geodon 20 mg Qday.
[2021-02-13] MEDS ORDERED: TOPROL XL PO SCH (09:51)
[2021-02-13] MEDS: DIFLUCAN PO SCH (15:07)
[2021-02-13] MEDS: [UNRECOGNIZED DRUG - OTHER] IV SCH ×8 (17:23→18:08)
[2021-02-13] MEDS: AMBIEN PO SCH (20:38)
[2021-02-14] MEDS ORDERED: MAGNESIUM SULFATE 50% INJ VIAL ONE (00:24)
[2021-02-14] MEDS ORDERED: NS 1,000 ML IV 1,000 ML ONE (00:24)
[2021-02-14] MEDS ORDERED: THIAMINE HCL INJ ONE (00:24)
[2021-02-14] MEDS ORDERED: MVI INJ (ADULT) IV ONE (00:42)
[2021-02-14] MEDS: MVI IV SCH ×8 (02:51→10:24)
[2021-02-14] MEDS: [UNRECOGNIZED DRUG - OTHER] IV SCH ×8 (02:51→10:24)
[2021-02-14] MEDS: NS IV SCH ×8 (02:51→10:24)
[2021-02-14] MEDS: THIAMINE HCL IV SCH ×8 (02:51→10:24)
[2021-02-14 06:23] LABS: BASOPHILS % (AUTO) 0.1 % (0.2-1.0); HEMATOCRIT 35.4 % (42.0-54.0); HEMOGLOBIN 12.1 g/dL (13.5-18.0); LYMPHOCYTES # (AUTO) 0.9 X10^3/uL (1.3-2.9); LYMPHOCYTES % (AUTO) 5.4 % (21.0-51.0); MEAN CORPUSCULAR HEMOGLOBIN 37.8 pg (27.0-34.0); MEAN CORPUSCULAR HGB CONC 34.1 g/dL (33.0-35.0); MEAN PLATELET VOLUME 8.6 fL (7.4-11.0); MONOCYTES % (AUTO) 6.6 % (0.0-13.0); NEUTROPHILS # (AUTO) 13.8 x10^3/uL (2.2-4.8); NEUTROPHILS % (AUTO) 87.9 % (42.0-75.0); PLATELET COUNT 245 X10^3/uL (150.0-450.0); RED BLOOD COUNT 3.19 X10^6/uL (4.7-6.0); RED CELL DISTRIBUTION WIDTH 17.7 % (11.6-16.5); WHITE BLOOD COUNT 15.7 X10^3/uL (3.6-10.0)
[2021-02-14 06:45] LABS: ALANINE AMINOTRANSFERASE 68 Units/L (12-78); ALKALINE PHOSPHATASE 52 Units/L (46-116); ASPARTATE AMINO TRANSFERASE 72 Units/L (15-37); BLOOD UREA NITROGEN 21 mg/dL (7-18); CALCIUM 8.1 mg/dL (8.5-10.1); CHLORIDE 107 mmol/L (98-107); COR CA(FOR HYPOALB) 8.9 mg/dL (8.5-10.1); COR NA(FOR HYPERGLY) 141 mmol/L (136-145); CREATINE KINASE 582 Units/L (39-308); CREATININE 0.78 mg/dL (0.70-1.30); SODIUM 140 mmol/L (136-145); TOTAL PROTEIN 6.8 g/dL (6.4-8.2); eGFR NON BLACK RACES > 60 (>60)
[2021-02-14 07:15] LABS: PLATELET MORPHOLOGY COMMENT NORMAL (NORMAL)
[2021-02-14] MEDS: DIFLUCAN PO SCH (08:52)
[2021-02-14] MEDS: GEODON PO SCH (08:52)
[2021-02-14] MEDS: ROCEPHIN 1 GRAM IV PREMIX 1 G/50 ML IV.SOLN. IV SCH (08:52)
[2021-02-14] MEDS: PHENOBARBITAL TAB 30 MG (32.4MG) PO SCH ×2 (08:53→14:50)
[2021-02-14] MEDS: SOLU-Medrol 40 MG VIAL IVP SCH (08:53)
--- NOTE | 2021-02-14 12:31 | CT ---
HISTORY:Left abdominal hematomaStudy: CT abdomen and pelvis with contrastComparison:NoneTechnique: Multiple axial images of the abdomen and pelvis were obtained with IV contrast. Oral contrast was administered. Dose reduction techniques including Automated Exposure Control (AEC) and adjustment of mA and kV were utilized.FINDINGS:Lung bases are clear. There are subacute nondisplaced fractures of the left posterior lateral 10th and 11th ribs. There is overlying subcutaneous edema/infiltrative hematoma. Mild intramuscular hematoma seen on axial image 53 measuring approximately 5.6 x 1.2 centimeters. No subcutaneous gas. The liver, spleen, pancreas, and adrenal glands are unremarkable in their CT appearance. Gallbladder is contracted.No renal calculi or obstructive uropathy. Visualized ureters are normal.No free intraperitoneal air . No evidence of intestinal obstruction or inflammation. Appendix is normal. There is diverticulosis of the distal colon. No ascites or abscess.There is an age-indeterminate compression fracture at the superior endplate of L1 with approximately 50 percent height loss. The vascular structures are unremarkable . No pathologically enlarged lymph nodes are identified.Normal urinary bladder.IMPRESSION ABDOMEN/PELVIS:Subacute nondisplaced left 10th and 11th rib fractures with overlying subcutaneous edema likely representing infiltrative hematoma. Mild intramuscular hematoma of the left lateral abdominal wall also seen in this region measuring approximately 5.6 x 1.2 centimeters.Age-indeterminate compression fracture of L1, favor chronic, with approximately 50 percent height loss.Electronically signed by: PATRICIA ESPINAL (Feb 14, 2021 12:29:44)
[2021-02-14 14:16] VITALS: BP 175/99
[2021-02-14] MEDS: KLOR-CON PO PRN (14:50)
[2021-02-14] MEDS ORDERED: PHENOBARBITAL TAB 30 MG (32.4MG) PO SCH (17:00)
== END 2021-02-14 15:40 | disposition home or self-care (01) | DRG 897 ==
LOC: MED/SURG → OBSVTOIN 12:15 → MED/SURG 02-12 13:45
PROVIDERS: ADMIT Family Medicine; ATTEND Family Medicine
DX: M62.82 Rhabdomyolysis; R41.82 Altered mental status, unspecified; F11.90 Opioid use, unspecified, uncomplicated; F10.232 Alcohol dependence with withdrawal with perceptual disturbance; R06.02 Shortness of breath; E87.6 Hypokalemia

== ENCOUNTER 2021-05-01 14:41 | Inpatient (IN) ==
[2021-05-01] MEDS ORDERED: ZOFRAN INJ 4 MG VIAL IVP PRN (19:12)
[2021-05-01] MEDS ORDERED: MILK OF MAGNESIA PO PRN (19:12)
[2021-05-01] MEDS ORDERED: MOTRIN TAB 800 MG PO PRN (19:12)
[2021-05-01] MEDS ORDERED: KAOPECTATE (NEW FORMULA) PO PRN (19:12)
[2021-05-01] MEDS ORDERED: HALDOL INJ IM PRN (19:12)
[2021-05-01] MEDS ORDERED: MAALOX or MYLANTA PO PRN (19:12)
[2021-05-01 20:18] LABS: BASOPHILS # (AUTO) 0.1 X10^3/uL (0.0-0.1); BASOPHILS % (AUTO) 0.9 % (0.2-1.0); EOSINOPHILS # (AUTO) 0.2 x10^3/uL (0.0-0.2); EOSINOPHILS % (AUTO) 1.5 % (0.9-2.9); HEMATOCRIT 41.2 % (42.0-54.0); HEMOGLOBIN 14.3 g/dL (13.5-18.0); LYMPHOCYTES # (AUTO) 3.7 X10^3/uL (1.3-2.9); MEAN CORPUSCULAR HEMOGLOBIN 33.9 pg (27.0-34.0); MEAN CORPUSCULAR HGB CONC 34.6 g/dL (33.0-35.0); MEAN CORPUSCULAR VOLUME 97.8 fL (80.0-100.0); MEAN PLATELET VOLUME 8.6 fL (7.4-11.0); MONOCYTES # (AUTO) 0.7 x10^3/uL (0.3-0.8); MONOCYTES % (AUTO) 6.8 % (0.0-13.0); NEUTROPHILS # (AUTO) 6.2 x10^3/uL (2.2-4.8); NEUTROPHILS % (AUTO) 56.8 % (42.0-75.0); RED BLOOD COUNT 4.22 X10^6/uL (4.7-6.0); RED CELL DISTRIBUTION WIDTH 16.6 % (11.6-16.5); WHITE BLOOD COUNT 10.9 X10^3/uL (3.6-10.0)
[2021-05-01 20:27] LABS: ALANINE AMINOTRANSFERASE 26 Units/L (12-78); ALBUMIN 3.8 g/dL (3.4-5.0); ALKALINE PHOSPHATASE 70 Units/L (46-116); ASPARTATE AMINO TRANSFERASE 21 Units/L (15-37); BLOOD ALCOHOL 176 mg/dL (0-19.9); BLOOD UREA NITROGEN 18 mg/dL (7-18); CALCIUM 8.7 mg/dL (8.5-10.1); CARBON DIOXIDE 26.5 mmol/L (21-32); CHLORIDE 100 mmol/L (98-107); CREATININE 1.25 mg/dL (0.70-1.30); MAGNESIUM 1.6 mg/dL (1.7-2.9); SODIUM 139 mmol/L (136-145); TOTAL PROTEIN 8.3 g/dL (6.4-8.2); eGFR NON BLACK RACES > 60 (>60)
[2021-05-01 21:35] VITALS: BMI 32.8
[2021-05-01] MEDS ORDERED: NS 1,000 ML IV 1,000 ML ONE (22:17)
[2021-05-01] MEDS ORDERED: MAGNESIUM SULFATE 50% INJ VIAL ONE (22:17)
[2021-05-01] MEDS ORDERED: NS 50 ML IV 50 ML IV ONE (22:18)
[2021-05-01] MEDS ORDERED: MVI INJ (ADULT) IV ONE (22:18)
[2021-05-01] MEDS: AMBIEN PO SCH (22:33)
[2021-05-01] MEDS: NS 1,000 ML IV 1,000 ML with MAGNESIUM SULFATE 50% INJ VIAL 1 G, MVI INJ (ADULT) 10 ML IV SCH ×3 (22:34)
[2021-05-01] MEDS: PHENOBARBITAL TAB 30 MG (32.4MG) PO SCH (22:44)
[2021-05-01] MEDS: MAGNESIUM SULFATE 1 GRAM/100 mL PREMIX 1 G/100 ML BAG IV SCH (22:44)
[2021-05-02] MEDS: MAGNESIUM SULFATE 1 GRAM/100 mL PREMIX 1 G/100 ML BAG IV SCH ×3 (05:06→21:33)
[2021-05-02 06:20] LABS: BASOPHILS # (AUTO) 0.1 X10^3/uL (0.0-0.1); BASOPHILS % (AUTO) 0.6 % (0.2-1.0); EOSINOPHILS # (AUTO) 0.2 x10^3/uL (0.0-0.2); EOSINOPHILS % (AUTO) 2.4 % (0.9-2.9); HEMATOCRIT 38.4 % (42.0-54.0); HEMOGLOBIN 13.2 g/dL (13.5-18.0); LYMPHOCYTES # (AUTO) 2.6 X10^3/uL (1.3-2.9); LYMPHOCYTES % (AUTO) 28.9 % (21.0-51.0); MEAN CORPUSCULAR HEMOGLOBIN 33.5 pg (27.0-34.0); MEAN CORPUSCULAR HGB CONC 34.3 g/dL (33.0-35.0); MEAN CORPUSCULAR VOLUME 97.8 fL (80.0-100.0); MEAN PLATELET VOLUME 8.8 fL (7.4-11.0); MONOCYTES # (AUTO) 0.9 x10^3/uL (0.3-0.8); MONOCYTES % (AUTO) 9.6 % (0.0-13.0); NEUTROPHILS # (AUTO) 5.2 x10^3/uL (2.2-4.8); NEUTROPHILS % (AUTO) 58.5 % (42.0-75.0); RED BLOOD COUNT 3.93 X10^6/uL (4.7-6.0); RED CELL DISTRIBUTION WIDTH 16.6 % (11.6-16.5); WHITE BLOOD COUNT 8.9 X10^3/uL (3.6-10.0)
[2021-05-02 06:31] LABS: ALANINE AMINOTRANSFERASE 25 Units/L (12-78); ALBUMIN 3.4 g/dL (3.4-5.0); ALKALINE PHOSPHATASE 61 Units/L (46-116); ASPARTATE AMINO TRANSFERASE 22 Units/L (15-37); BLOOD UREA NITROGEN 20 mg/dL (7-18); CALCIUM 8.6 mg/dL (8.5-10.1); CHLORIDE 104 mmol/L (98-107); COR NA(FOR HYPERGLY) 141 mmol/L (136-145); CREATININE 0.91 mg/dL (0.70-1.30); SODIUM 141 mmol/L (136-145); TOTAL PROTEIN 7.3 g/dL (6.4-8.2); eGFR NON BLACK RACES > 60 (>60)
[2021-05-02 08:42] LABS: BILIRUBIN,URINE NEGATIVE (NEGATIVE); BLOOD/HEMOGLOBIN,URINE NEGATIVE (NEGATIVE); GLUCOSE, URINE NEGATIVE (NEGATIVE); KETONES,URINE NEGATIVE (NEGATIVE); LEUKOCYTE ESTERASE ,URINE NEGATIVE (NEGATIVE); NITRITES,URINE NEGATIVE (NEGATIVE); PROTEIN,URINE 2+ (NEGATIVE); UROBILINOGEN,URINE 1+ (NORMAL)
[2021-05-02] MEDS: PHENOBARBITAL TAB 30 MG (32.4MG) PO SCH ×4 (08:50→21:29)
[2021-05-02 08:53] LABS: APPEARANCE,URINE CLEAR (CLEAR); COLOR,URINE YELLOW (YELLOW)
[2021-05-02 08:58] LABS: BACTERIA,URINE NEGATIVE /HPF (NEGATIVE); RBC,URINE NONE SEEN /HPF (0-3); SQUAMOUS EPITHELIAL CELL,UR RARE /HPF (NEGATIVE)
--- NOTE | 2021-05-02 13:17 | DR.H&P ---
H&P History & Physical for Day of: H&P Date: 05/01/21 Chief Complaint Chief Complaint: Alcohol Detox Allergies Allergies Allergy/AdvReac Type Severity Reaction Status Date / Time No Known Drug Allergies Allergy Verified 02/11/21 13:01 History of Present Illness History of Present Illness: This is a 45-year-old white male with a long history of alcoholism who failed out-patient detox with PO Valium for greater than 2 weeks. He has begun having hallucinations he reports. He had this back in February 2021 in which he required hospitalization. He is nervous and sweaty here in the office today. He feels nauseated and had been dry heaving but not vomiting yet. I admitted him for acute alcoholic detox. Past Medical History Past Medical History: Depression, Migraines, Headaches and Hypertension Past Surgical History Surgical History: Ortho Surgery Family History Family Medical History: Hypertension Social History Does patient currently use any type of tobacco product: Yes Have you used tobacco products in the last 12 months: Yes Type of Tobacco Use: Cigarettes How many years tobacco product used: 20 Does any household member use tobacco: No Alcohol Use: Heavy and DAILY Drug Use: Prescription Drugs Medications Home Medications: No Known Drug Allergies Allergy (Verified 02/11/21 13:01) Labs Result Diagrams: 05/02/21 05:34 05/02/21 05:34 Labs: Laboratory WBC 8.9 X10^3/uL (3.6-10.0) 05/02/21 05:34 RBC 3.93 X10^6/uL (4.7-6.0) L 05/02/21 05:34 Hgb 13.2 g/dL (13.5-18.0) L 05/02/21 05:34 Hct 38.4 % (42.0-54.0) L 05/02/21 05:34 MCV 97.8 fL (80.0-100.0) 05/02/21 05:34 MCH 33.5 pg (27.0-34.0) 05/02/21 05:34 MCHC 34.3 g/dL (33.0-35.0) 05/02/21 05:34 RDW 16.6 % (11.6-16.5) H 05/02/21 05:34 Plt Count 207 X10^3/uL (150.0-450.0) 05/02/21 05:34 MPV 8.8 fL (7.4-11.0) 05/02/21 05:34 Neut % (Auto) 58.5 % (42.0-75.0) 05/02/21 05:34 Lymph % (Auto) 28.9 % (21.0-51.0) 05/02/21 05:34 [place] % (Auto) 9.6 % (0.0-13.0) 05/02/21 05:34 Eos % (Auto) 2.4 % (0.9-2.9) 05/02/21 05:34 Baso % (Auto) 0.6 % (0.2-1.0) 05/02/21 05:34 Neut # (Auto) 5.2 x10^3/uL (2.2-4.8) H 05/02/21 05:34 Lymph # (Auto) 2.6 X10^3/uL (1.3-2.9) 05/02/21 05:34 [place] # (Auto) 0.9 x10^3/uL (0.3-0.8) H 05/02/21 05:34 Eos # (Auto) 0.2 x10^3/uL (0.0-0.2) 05/02/21 05:34 Baso # (Auto) 0.1 X10^3/uL (0.0-0.1) 05/02/21 05:34 Absolute Nucleated RBC 0.1 /100WBC 05/02/21 05:34 Sodium 141 mmol/L (136-145) 05/02/21 05:34 Corrected Sodium 141 mmol/L (136-145) 05/02/21 05:34 Potassium 3.3 mmol/L (3.5-5.1) L 05/02/21 05:34 Chloride 104 mmol/L (98-107) 05/02/21 05:34 Carbon Dioxide 27.0 mmol/L (21-32) 05/02/21 05:34 BUN 20 mg/dL (7-18) H 05/02/21 05:34 Creatinine 0.91 mg/dL (0.70-1.30) 05/02/21 05:34 Est GFR (MDRD) Af Amer > 60 (>60) 05/02/21 05:34 Est GFR (MDRD) Non-Af > 60 (>60) 05/02/21 05:34 Glucose 115 mg/dL (65-99) H 05/02/21 05:34 Calcium 8.6 mg/dL (8.5-10.1) 05/02/21 05:34 Corrected Calcium TNP 05/02/21 05:34 Magnesium 1.6 mg/dL (1.7-2.9) L 05/01/21 19:41 Total Bilirubin 0.70 mg/dL (0.2-1.0) 05/02/21 05:34 AST 22 Units/L (15-37) 05/02/21 05:34 ALT 25 Units/L (12-78) 05/02/21 05:34 Alkaline Phosphatase 61 Units/L (46-116) 05/02/21 05:34 Total Protein 7.3 g/dL (6.4-8.2) 05/02/21 05:34 Albumin 3.4 g/dL (3.4-5.0) 05/02/21 05:34 Globulin 3.9 g/dL (2.5-4.5) 05/02/21 05:34 Albumin/Globulin Ratio 0.9 Ratio (1.1-2.1) L 05/02/21 05:34 Specimen Type Clean catch urine 05/02/21 08:23 Urine Color Yellow (YELLOW) 05/02/21 08:23 Urine Appearance Clear (CLEAR) 05/02/21 08:23 Urine pH 6.0 (5.0 - 8.0) 05/02/21 08:23 Ur Specific [place] 1.025 (1.000-1.030) 05/02/21 08:23 Urine Protein 2+ (NEGATIVE) 05/02/21 08:23 Urine Glucose (UA) Negative (NEGATIVE) 05/02/21 08:23 Urine Ketones Negative (NEGATIVE) 05/02/21 08:23 Urine Occult Blood Negative (NEGATIVE) 05/02/21 08:23 Urine Nitrite Negative (NEGATIVE) 05/02/21 08:23 Urine Bilirubin Negative (NEGATIVE) 05/02/21 08:23 Urine Urobilinogen 1+ (NORMAL) 05/02/21 08:23 Ur Leukocyte Esterase Negative (NEGATIVE) 05/02/21 08:23 Urine RBC None seen /HPF (0-3) 05/02/21 08:23 Urine WBC None seen /HPF (0-5) 05/02/21 08:23 Ur Squamous Epith Cells Rare /HPF (NEGATIVE) 05/02/21 08:23 Amorphous Sediment Trace /HPF (NEGATIVE) 05/02/21 08:23 Urine Bacteria Negative /HPF (NEGATIVE) 05/02/21 08:23 Ur Culture Indicated? No/not indicated 05/02/21 08:23 Urine Opiates Screen Negative (NEG=<300) 05/02/21 08:23 Urine Methadone Screen Negative (NEG=<300) 05/02/21 08:23 Ur Barbiturates Screen Negative (NEG=<200) 05/02/21 08:23 Ur Phencyclidine Scrn Negative (NEG=<25) 05/02/21 08:23 Ur Amphetamines Screen Negative (NEG=<1000) 05/02/21 08:23 U Benzodiazepines Scrn Positive (NEG=<200) 05/02/21 08:23 Urine Cocaine Screen Negative (NEG=<300) 05/02/21 08:23 U Marijuana (THC) Screen Negative (NEG=<50) 05/02/21 08:23 Ethyl Alcohol mg/dL 176 mg/dL (0-19.9) H 05/01/21 19:41 SARS CoV-2 RNA Rapid HIWOT Negative (NEGATIVE) 05/01/21 17:10 Review of Systems Constitutional: Sweats Eyes: No Symptoms Reported ENT: Nose Discharge Respiratory: No Symptoms Reported Cardiovascular: Palpitations Gastrointestinal: Nausea Genitourinary: No Symptoms Reported Musculoskeletal: No Symptoms Reported Skin: No Symptoms Reported Neurological: No Symptoms Reported Physical Exam Vital Signs: Temperature 98.2 F Pulse Rate [Right Brachial] 100 Respiratory Rate 20 Blood Pressure [Right Arm] 178/89 O2 Sat by Pulse Oximetry 97 Oriented: Normal Eyes: Normal Ear: Normal Nose: Normal Throat: Normal Respiratory: Clear Throughout Cardiovascular: Normal : Normal Auscultation: Bowel Sounds: Normal Palpation: Normal Tenderness: Normal Skin: Normal Musculoskeletal: Normal Psychiatric: Anxiety Mood Description: Fearful and Anxious Affect: Anxious and Depressed Speech Pattern: Clear Assessment/Plan (1) Alcohol use disorder: Status: Acute 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 (2) Alcohol withdrawal hallucinosis: Status: Resolved Plan: Will start Alcohol Detox protocol. (3) HTN (hypertension): Status: Acute Plan: Monitor. Review H&P Reviewed: Yes Patient was examined?: Yes
--- NOTE | 2021-05-02 13:32 | PCM.PROG ---
Progress Note Progress Note for Day of Date of Exam: 05/02/21 Subjective Subjective: Patient is doing ok this am he reports. He is feeling nervous and is fearful of the audible and visual hallucinations. He had been drinking alcohol yesterday before coming in and I suspect with in the next 24 to 48 hours his DT's will get worse. He is on Phenobarital for seizure prevention. I will continue the Librium he is on at this time for anxiety. Zofran is ordered for nausea. Will replace low Mg and K levels. Past Medical Family Social History Past Med/Fam/Surg Hx: No changes since H&P Allergies: Allergies No Known Drug Allergies Allergy (Verified 02/11/21 13:01) Review of Systems ROS: No change since H&P Vital Signs and I&O's Vital Signs: Temperature 98.2 F Pulse Rate [Right Brachial] 100 Respiratory Rate 20 Blood Pressure [Right Arm] 178/89 O2 Sat by Pulse Oximetry 97 Intake and Output: Intake & Output 04/30/21 05/01/21 05/02/21 05/03/21 11:59 11:59 11:59 11:59 Intake Total 1306 / 1306 Balance 1306 / 1306 Physical Exam Oriented: Normal Eyes: Normal Ear: Normal Nose: Normal Throat: Normal Cardiovascular: Normal : Normal Auscultation: Bowel Sounds: Normal Tenderness: Normal Skin: Normal Musculoskeletal: Normal Psychiatric: Anxiety Mood Description: Fearful and Anxious Affect: Anxious and Depressed Speech Pattern: Clear Laboratory and Diagnostics Result Diagrams: 05/02/21 05:34 05/02/21 05:34 Labs: Laboratory WBC 8.9 X10^3/uL (3.6-10.0) 05/02/21 05:34 RBC 3.93 X10^6/uL (4.7-6.0) L 05/02/21 05:34 Hgb 13.2 g/dL (13.5-18.0) L 05/02/21 05:34 Hct 38.4 % (42.0-54.0) L 05/02/21 05:34 MCV 97.8 fL (80.0-100.0) 05/02/21 05:34 MCH 33.5 pg (27.0-34.0) 05/02/21 05:34 MCHC 34.3 g/dL (33.0-35.0) 05/02/21 05:34 RDW 16.6 % (11.6-16.5) H 05/02/21 05:34 Plt Count 207 X10^3/uL (150.0-450.0) 05/02/21 05:34 MPV 8.8 fL (7.4-11.0) 05/02/21 05:34 Neut % (Auto) 58.5 % (42.0-75.0) 05/02/21 05:34 Lymph % (Auto) 28.9 % (21.0-51.0) 05/02/21 05:34 [place] % (Auto) 9.6 % (0.0-13.0) 05/02/21 05:34 Eos % (Auto) 2.4 % (0.9-2.9) 05/02/21 05:34 Baso % (Auto) 0.6 % (0.2-1.0) 05/02/21 05:34 Neut # (Auto) 5.2 x10^3/uL (2.2-4.8) H 05/02/21 05:34 Lymph # (Auto) 2.6 X10^3/uL (1.3-2.9) 05/02/21 05:34 [place] # (Auto) 0.9 x10^3/uL (0.3-0.8) H 05/02/21 05:34 Eos # (Auto) 0.2 x10^3/uL (0.0-0.2) 05/02/21 05:34 Baso # (Auto) 0.1 X10^3/uL (0.0-0.1) 05/02/21 05:34 Absolute Nucleated RBC 0.1 /100WBC 05/02/21 05:34 Sodium 141 mmol/L (136-145) 05/02/21 05:34 Corrected Sodium 141 mmol/L (136-145) 05/02/21 05:34 Potassium 3.3 mmol/L (3.5-5.1) L 05/02/21 05:34 Chloride 104 mmol/L (98-107) 05/02/21 05:34 Carbon Dioxide 27.0 mmol/L (21-32) 05/02/21 05:34 BUN 20 mg/dL (7-18) H 05/02/21 05:34 Creatinine 0.91 mg/dL (0.70-1.30) 05/02/21 05:34 Est GFR (MDRD) Af Amer > 60 (>60) 05/02/21 05:34 Est GFR (MDRD) Non-Af > 60 (>60) 05/02/21 05:34 Glucose 115 mg/dL (65-99) H 05/02/21 05:34 Calcium 8.6 mg/dL (8.5-10.1) 05/02/21 05:34 Corrected Calcium TNP 05/02/21 05:34 Magnesium 1.6 mg/dL (1.7-2.9) L 05/01/21 19:41 Total Bilirubin 0.70 mg/dL (0.2-1.0) 05/02/21 05:34 AST 22 Units/L (15-37) 05/02/21 05:34 ALT 25 Units/L (12-78) 05/02/21 05:34 Alkaline Phosphatase 61 Units/L (46-116) 05/02/21 05:34 Total Protein 7.3 g/dL (6.4-8.2) 05/02/21 05:34 Albumin 3.4 g/dL (3.4-5.0) 05/02/21 05:34 Globulin 3.9 g/dL (2.5-4.5) 05/02/21 05:34 Albumin/Globulin Ratio 0.9 Ratio (1.1-2.1) L 05/02/21 05:34 Specimen Type Clean catch urine 05/02/21 08:23 Urine Color Yellow (YELLOW) 05/02/21 08:23 Urine Appearance Clear (CLEAR) 05/02/21 08:23 Urine pH 6.0 (5.0 - 8.0) 05/02/21 08:23 Ur Specific [place] 1.025 (1.000-1.030) 05/02/21 08:23 Urine Protein 2+ (NEGATIVE) 05/02/21 08:23 Urine Glucose (UA) Negative (NEGATIVE) 05/02/21 08:23 Urine Ketones Negative (NEGATIVE) 05/02/21 08:23 Urine Occult Blood Negative (NEGATIVE) 05/02/21 08: Urine Nitrite Negative (NEGATIVE) 05/02/21 08:23 Urine Bilirubin Negative (NEGATIVE) 05/02/21 08:23 Urine Urobilinogen 1+ (NORMAL) 05/02/21 08:23 Ur Leukocyte Esterase Negative (NEGATIVE) 05/02/21 08:23 Urine RBC None seen /HPF (0-3) 05/02/21 08:23 Urine WBC None seen /HPF (0-5) 05/02/21 08:23 Ur Squamous Epith Cells Rare /HPF (NEGATIVE) 05/02/21 08: Amorphous Sediment Trace /HPF (NEGATIVE) 05/02/21 08:23 Urine Bacteria Negative /HPF (NEGATIVE) 05/02/21 08:23 Ur Culture Indicated? No/not indicated 05/02/21 08: Urine Opiates Screen Negative (NEG=<300) 05/02/21 08: Urine Methadone Screen Negative (NEG=<300) 05/02/21 08:23 Ur Barbiturates Screen Negative (NEG=<200) 05/02/21 08:23 Ur Phencyclidine Scrn Negative (NEG=<25) 05/02/21 08: Ur Amphetamines Screen Negative (NEG=<1000) 05/02/21 08:23 U Benzodiazepines Scrn Positive (NEG=<200) 05/02/21 08:23 Urine Cocaine Screen Negative (NEG=<300) 05/02/21 08:23 U Marijuana (THC) Screen Negative (NEG=<50) 05/02/21 08:23 Ethyl Alcohol mg/dL 176 mg/dL (0-19.9) H 05/01/21 19:41 SARS CoV-2 RNA Rapid HIWOT Negative (NEGATIVE) 05/01/21 17:10 Plan (1) Alcohol use disorder: Status: Acute Plan: Printer Assistant on Alcohol Cessation. (2) Alcohol withdrawal hallucinosis: Status: Resolved Plan: Will continue Alcohol Detox protocol. (3) HTN (hypertension): Status: Acute Plan: Monitor. Will resume Metoprolol ER 100 mg po daily today. (4) Hypokalemia: Status: Acute Plan: Replace with K replacement protocol. (5) Hypomagnesemia: Status: Acute Plan: Replace.
[2021-05-02] MEDS ORDERED: TOPROL XL PO ONE (13:48)
[2021-05-02] MEDS: TOPROL XL PO SCH (13:53)
[2021-05-02] MEDS: LIBRIUM PO PRN ×2 (13:57→21:30)
[2021-05-02] MEDS: VALIUM INJ IVP PRN (14:03)
[2021-05-02] MEDS: AMBIEN PO SCH (21:30)
[2021-05-02] MEDS: NS 1,000 ML IV 1,000 ML with MAGNESIUM SULFATE 50% INJ VIAL 1 G, MVI INJ (ADULT) 10 ML IV SCH ×3 (21:39)
[2021-05-03] MEDS: MAGNESIUM SULFATE 1 GRAM/100 mL PREMIX 1 G/100 ML BAG IV SCH ×2 (05:22→15:47)
[2021-05-03 06:26] LABS: BASOPHILS # (AUTO) 0.1 X10^3/uL (0.0-0.1); BASOPHILS % (AUTO) 0.9 % (0.2-1.0); EOSINOPHILS # (AUTO) 0.2 x10^3/uL (0.0-0.2); EOSINOPHILS % (AUTO) 3.1 % (0.9-2.9); HEMATOCRIT 38.6 % (42.0-54.0); HEMOGLOBIN 13.3 g/dL (13.5-18.0); LYMPHOCYTES # (AUTO) 1.9 X10^3/uL (1.3-2.9); LYMPHOCYTES % (AUTO) 26.1 % (21.0-51.0); MEAN CORPUSCULAR HEMOGLOBIN 33.4 pg (27.0-34.0); MEAN CORPUSCULAR HGB CONC 34.4 g/dL (33.0-35.0); MEAN CORPUSCULAR VOLUME 97.1 fL (80.0-100.0); MEAN PLATELET VOLUME 8.7 fL (7.4-11.0); MONOCYTES # (AUTO) 0.7 x10^3/uL (0.3-0.8); MONOCYTES % (AUTO) 9.5 % (0.0-13.0); NEUTROPHILS # (AUTO) 4.4 x10^3/uL (2.2-4.8); NEUTROPHILS % (AUTO) 60.4 % (42.0-75.0); RED BLOOD COUNT 3.98 X10^6/uL (4.7-6.0); RED CELL DISTRIBUTION WIDTH 16.5 % (11.6-16.5); WHITE BLOOD COUNT 7.3 X10^3/uL (3.6-10.0)
[2021-05-03 06:42] LABS: ALANINE AMINOTRANSFERASE 30 Units/L (12-78); ALBUMIN 3.3 g/dL (3.4-5.0); ALKALINE PHOSPHATASE 62 Units/L (46-116); ASPARTATE AMINO TRANSFERASE 31 Units/L (15-37); BLOOD UREA NITROGEN 14 mg/dL (7-18); CALCIUM 8.5 mg/dL (8.5-10.1); CARBON DIOXIDE 24.1 mmol/L (21-32); CHLORIDE 105 mmol/L (98-107); COR CA(FOR HYPOALB) 9.1 mg/dL (8.5-10.1); SODIUM 140 mmol/L (136-145); TOTAL PROTEIN 7.3 g/dL (6.4-8.2); eGFR NON BLACK RACES > 60 (>60)
[2021-05-03] MEDS ORDERED: TOPROL XL PO ONE (08:19)
[2021-05-03] MEDS: PHENOBARBITAL TAB 30 MG (32.4MG) PO SCH ×3 (08:24→16:50)
[2021-05-03] MEDS: TOPROL XL PO SCH (08:26)
[2021-05-03] MEDS: VALIUM INJ IVP PRN ×2 (10:02→16:51)
[2021-05-03] MEDS: LIBRIUM PO PRN ×2 (10:02→17:38)
--- NOTE | 2021-05-03 14:50 | PCM.PROG ---
Progress Note Progress Note for Day of Date of Exam: 05/03/21 Subjective Subjective: Patient is doing ok this am he reports. He is feeling nervous and is fearful of the audible and visual hallucinations. He is on Phenobarbital for seizure prevention. I will continue the Librium he is on at this time for anxiety. Zofran is ordered for nausea. Will replace low Mg and K levels. Hallucinations are increasing he reports. IV Valium was added yesterday for better anxiety control. Past Medical Family Social History Past Med/Fam/Surg Hx: No changes since H&P Allergies: Allergies No Known Drug Allergies Allergy (Verified 02/11/21 13:01) Review of Systems ROS: No change since H&P Vital Signs and I&O's Vital Signs: Temperature 98.1 F Pulse Rate [Right Brachial] 87 Respiratory Rate 20 Blood Pressure [Right Arm] 123/67 O2 Sat by Pulse Oximetry 98 Intake and Output: Intake & Output 05/01/21 05/02/21 05/03/21 05/04/21 11:59 11:59 11:59 11:59 Intake Total 1306 / 1306 1867 / 1867 Balance 1306 / 1306 1867 / 1867 Physical Exam Oriented: Normal Eyes: Normal Ear: Normal Nose: Normal Throat: Normal Cardiovascular: Normal : Normal Auscultation: Bowel Sounds: Normal Tenderness: Normal Skin: Normal Musculoskeletal: Normal Psychiatric: Anxiety Mood Description: Fearful and Anxious Affect: Anxious and Depressed Speech Pattern: Clear and Appropriate Laboratory and Diagnostics Result Diagrams: 05/03/21 05:23 05/03/21 05:23 Labs: Laboratory WBC 7.3 X10^3/uL (3.6-10.0) 05/03/21 05:23 RBC 3.98 X10^6/uL (4.7-6.0) L 05/03/21 05:23 Hgb 13.3 g/dL (13.5-18.0) L 05/03/21 05:23 Hct 38.6 % (42.0-54.0) L 05/03/21 05:23 MCV 97.1 fL (80.0-100.0) 05/03/21 05:23 MCH 33.4 pg (27.0-34.0) 05/03/21 05:23 MCHC 34.4 g/dL (33.0-35.0) 05/03/21 05:23 RDW 16.5 % (11.6-16.5) 05/03/21 05:23 Plt Count 214 X10^3/uL (150.0-450.0) 05/03/21 05:23 MPV 8.7 fL (7.4-11.0) 05/03/21 05:23 Neut % (Auto) 60.4 % (42.0-75.0) 05/03/21 05:23 Lymph % (Auto) 26.1 % (21.0-51.0) 05/03/21 05:23 [place] % (Auto) 9.5 % (0.0-13.0) 05/03/21 05:23 Eos % (Auto) 3.1 % (0.9-2.9) H 05/03/21 05:23 Baso % (Auto) 0.9 % (0.2-1.0) 05/03/21 05:23 Neut # (Auto) 4.4 x10^3/uL (2.2-4.8) 05/03/21 05:23 Lymph # (Auto) 1.9 X10^3/uL (1.3-2.9) 05/03/21 05:23 [place] # (Auto) 0.7 x10^3/uL (0.3-0.8) 05/03/21 05:23 Eos # (Auto) 0.2 x10^3/uL (0.0-0.2) 05/03/21 05:23 Baso # (Auto) 0.1 X10^3/uL (0.0-0.1) 05/03/21 05:23 Absolute Nucleated RBC 0.1 /100WBC 05/03/21 05:23 Sodium 140 mmol/L (136-145) 05/03/21 05:23 Corrected Sodium TNP 05/03/21 05:23 Potassium 3.3 mmol/L (3.5-5.1) L 05/03/21 05:23 Chloride 105 mmol/L (98-107) 05/03/21 05:23 Carbon Dioxide 24.1 mmol/L (21-32) 05/03/21 05:23 BUN 14 mg/dL (7-18) 05/03/21 05:23 Creatinine 0.60 mg/dL (0.70-1.30) L 05/03/21 05:23 Est GFR (MDRD) Af Amer > 60 (>60) 05/03/21 05:23 Est GFR (MDRD) Non-Af > 60 (>60) 05/03/21 05:23 Glucose 102 mg/dL (65-99) H 05/03/21 05:23 Calcium 8.5 mg/dL (8.5-10.1) 05/03/21 05:23 Corrected Calcium 9.1 mg/dL (8.5-10.1) 05/03/21 05:23 Magnesium 1.6 mg/dL (1.7-2.9) L 05/01/21 19:41 Total Bilirubin 0.80 mg/dL (0.2-1.0) 05/03/21 05:23 AST 31 Units/L (15-37) 05/03/21 05:23 ALT 30 Units/L (12-78) 05/03/21 05:23 Alkaline Phosphatase 62 Units/L (46-116) 05/03/21 05:23 Total Protein 7.3 g/dL (6.4-8.2) 05/03/21 05:23 Albumin 3.3 g/dL (3.4-5.0) L 05/03/21 05:23 Globulin 4.0 g/dL (2.5-4.5) 05/03/21 05:23 Albumin/Globulin Ratio 0.8 Ratio (1.1-2.1) L 05/03/21 05:23 Specimen Type Clean catch urine 05/02/21 08:23 Urine Color Yellow (YELLOW) 05/02/21 08:23 Urine Appearance Clear (CLEAR) 05/02/21 08:23 Urine pH 6.0 (5.0 - 8.0) 05/02/21 08:23 Ur Specific [place] 1.025 (1.000-1.030) 05/02/21 08:23 Urine Protein 2+ (NEGATIVE) 05/02/21 08:23 Urine Glucose (UA) Negative (NEGATIVE) 05/02/21 08:23 Urine Ketones Negative (NEGATIVE) 05/02/21 08:23 Urine Occult Blood Negative (NEGATIVE) 05/02/21 08: Urine Nitrite Negative (NEGATIVE) 05/02/21 08:23 Urine Bilirubin Negative (NEGATIVE) 05/02/21 08:23 Urine Urobilinogen 1+ (NORMAL) 05/02/21 08:23 Ur Leukocyte Esterase Negative (NEGATIVE) 05/02/21 08:23 Urine RBC None seen /HPF (0-3) 05/02/21 08:23 Urine WBC None seen /HPF (0-5) 05/02/21 08:23 Ur Squamous Epith Cells Rare /HPF (NEGATIVE) 05/02/21 08:23 Amorphous Sediment Trace /HPF (NEGATIVE) 05/02/21 08:23 Urine Bacteria Negative /HPF (NEGATIVE) 05/02/21 08:23 Ur Culture Indicated? No/not indicated 05/02/21 08:23 Urine Opiates Screen Negative (NEG=<300) 05/02/21 08:23 Urine Methadone Screen Negative (NEG=<300) 05/02/21 08:23 Ur Barbiturates Screen Negative (NEG=<200) 05/02/21 08:23 Ur Phencyclidine Scrn Negative (NEG=<25) 05/02/21 08:23 Ur Amphetamines Screen Negative (NEG=<1000) 05/02/21 08:23 U Benzodiazepines Scrn Positive (NEG=<200) 05/02/21 08:23 Urine Cocaine Screen Negative (NEG=<300) 05/02/21 08:23 U Marijuana (THC) Screen Negative (NEG=<50) 05/02/21 08:23 Ethyl Alcohol mg/dL 176 mg/dL (0-19.9) H 05/01/21 19:41 SARS CoV-2 RNA Rapid HIWOT Negative (NEGATIVE) 05/01/21 17:10 Plan (1) Alcohol use disorder: Status: Acute Plan: Psych Arnp on Alcohol Cessation. (2) Alcohol withdrawal hallucinosis: Status: Resolved Plan: Will continue Alcohol Detox protocol. (3) HTN (hypertension): Status: Acute Narrative Support Text: HTN improved. Plan: Monitor. Will resume Metoprolol ER 100 mg po daily today. (4) Hypokalemia: Status: Acute Plan: Replace with K replacement protocol. (5) Hypomagnesemia: Status: Acute Plan: Replace.
[2021-05-03] MEDS ORDERED: PHENOBARBITAL TAB 30 MG (32.4MG) PO ONE (21:00)
[2021-05-03] MEDS ORDERED: MAGNESIUM SULFATE 50% INJ VIAL IV ONE (21:00)
[2021-05-03] MEDS ORDERED: AMBIEN PO ONE (21:00)
[2021-05-04] MEDS ORDERED: MICRO K EXTEN CAP 10 MEQ PO PRN (14:37)
[2021-05-04] MEDS ORDERED: POTASSIUM CHL 60 MEQ/NS 0.45% 500 ML IV PRN (14:37)
[2021-05-04] MEDS ORDERED: POTASSIUM CHL 40 MEQ/NS 0.45% 500 ML IV PRN (14:37)
[2021-05-04] MEDS ORDERED: K-DUR TAB 20 MEQ PO PRN (14:37)
[2021-05-04] MEDS ORDERED: POTASSIUM CHLORIDE LIQ 20 MEQ UDC PO PRN (14:37)
[2021-05-04] MEDS ORDERED: KLOR-CON PO PRN (14:37)
[2021-05-04] MEDS: LIBRIUM PO PRN ×2 (16:32→22:25)
[2021-05-04] MEDS: PHENOBARBITAL TAB 30 MG (32.4MG) PO SCH ×2 (16:32→22:25)
[2021-05-04] MEDS: VALIUM INJ IVP PRN (17:29)
--- NOTE | 2021-05-04 18:57 | PCM.PROG ---
Progress Note Progress Note for Day of Date of Exam: 05/04/21 Subjective Subjective: Patient is doing ok this am he reports. He is feeling nervous and is fearful of the audible and visual hallucinations. He is on Phenobarbital for seizure prevention. I will continue the Librium he is on at this time for anxiety. Zofran is ordered for nausea. Will replace low Mg and K levels. Hallucinations are increasing he reports. IV Valium was added 2 days for better anxiety control. Possible discharge home tomorrow. Past Medical Family Social History Past Med/Fam/Surg Hx: No changes since H&P Allergies: Allergies No Known Drug Allergies Allergy (Verified 02/11/21 13:01) Review of Systems ROS: No change since H&P Vital Signs and I&O's Vital Signs: Temperature 97.6 F Pulse Rate [Left Brachial] 81 Pulse Rate [Right Brachial] 83 Respiratory Rate 20 Blood Pressure [Right Arm] 157/76 O2 Sat by Pulse Oximetry 98 Intake and Output: Intake & Output 05/02/21 05/03/21 05/04/21 05/05/21 11:59 11:59 11:59 11:59 Intake Total 1306 / 1306 1867 / 1867 800 / 800 905 / 905 Balance 1306 / 1306 1867 / 1867 800 / 800 905 / 905 Physical Exam Oriented: Normal Eyes: Normal Ear: Normal Nose: Normal Throat: Normal Cardiovascular: Normal : Normal Auscultation: Bowel Sounds: Normal Tenderness: Normal Skin: Normal Musculoskeletal: Normal Psychiatric: Anxiety Mood Description: Fearful and Anxious Affect: Anxious and Depressed Speech Pattern: Clear and Appropriate Laboratory and Diagnostics Result Diagrams: 05/03/21 05:23 05/03/21 05:23 Labs: Laboratory WBC 7.3 X10^3/uL (3.6-10.0) 05/03/21 05:23 RBC 3.98 X10^6/uL (4.7-6.0) L 05/03/21 05:23 Hgb 13.3 g/dL (13.5-18.0) L 05/03/21 05:23 Hct 38.6 % (42.0-54.0) L 05/03/21 05:23 MCV 97.1 fL (80.0-100.0) 05/03/21 05:23 MCH 33.4 pg (27.0-34.0) 05/03/21 05:23 MCHC 34.4 g/dL (33.0-35.0) 05/03/21 05:23 RDW 16.5 % (11.6-16.5) 05/03/21 05:23 Plt Count 214 X10^3/uL (150.0-450.0) 05/03/21 05:23 MPV 8.7 fL (7.4-11.0) 05/03/21 05:23 Neut % (Auto) 60.4 % (42.0-75.0) 05/03/21 05:23 Lymph % (Auto) 26.1 % (21.0-51.0) 05/03/21 05:23 [place] % (Auto) 9.5 % (0.0-13.0) 05/03/21 05:23 Eos % (Auto) 3.1 % (0.9-2.9) H 05/03/21 05:23 Baso % (Auto) 0.9 % (0.2-1.0) 05/03/21 05:23 Neut # (Auto) 4.4 x10^3/uL (2.2-4.8) 05/03/21 05:23 Lymph # (Auto) 1.9 X10^3/uL (1.3-2.9) 05/03/21 05:23 [place] # (Auto) 0.7 x10^3/uL (0.3-0.8) 05/03/21 05:23 Eos # (Auto) 0.2 x10^3/uL (0.0-0.2) 05/03/21 05:23 Baso # (Auto) 0.1 X10^3/uL (0.0-0.1) 05/03/21 05:23 Absolute Nucleated RBC 0.1 /100WBC 05/03/21 05:23 Sodium 140 mmol/L (136-145) 05/03/21 05:23 Corrected Sodium TNP 05/03/21 05:23 Potassium 3.3 mmol/L (3.5-5.1) L 05/03/21 05:23 Chloride 105 mmol/L (98-107) 05/03/21 05:23 Carbon Dioxide 24.1 mmol/L (21-32) 05/03/21 05:23 BUN 14 mg/dL (7-18) 05/03/21 05:23 Creatinine 0.60 mg/dL (0.70-1.30) L 05/03/21 05:23 Est GFR (MDRD) Af Amer > 60 (>60) 05/03/21 05:23 Est GFR (MDRD) Non-Af > 60 (>60) 05/03/21 05:23 Glucose 102 mg/dL (65-99) H 05/03/21 05:23 Calcium 8.5 mg/dL (8.5-10.1) 05/03/21 05:23 Corrected Calcium 9.1 mg/dL (8.5-10.1) 05/03/21 05:23 Magnesium 1.6 mg/dL (1.7-2.9) L 05/01/21 19:41 Total Bilirubin 0.80 mg/dL (0.2-1.0) 05/03/21 05:23 AST 31 Units/L (15-37) 05/03/21 05:23 ALT 30 Units/L (12-78) 05/03/21 05:23 Alkaline Phosphatase 62 Units/L (46-116) 05/03/21 05:23 Total Protein 7.3 g/dL (6.4-8.2) 05/03/21 05:23 Albumin 3.3 g/dL (3.4-5.0) L 05/03/21 05:23 Globulin 4.0 g/dL (2.5-4.5) 05/03/21 05:23 Albumin/Globulin Ratio 0.8 Ratio (1.1-2.1) L 05/03/21 05:23 Specimen Type Clean catch urine 05/02/21 08:23 Urine Color Yellow (YELLOW) 05/02/21 08:23 Urine Appearance Clear (CLEAR) 05/02/21 08:23 Urine pH 6.0 (5.0 - 8.0) 05/02/21 08:23 Ur Specific [place] 1.025 (1.000-1.030) 05/02/21 08:23 Urine Protein 2+ (NEGATIVE) 05/02/21 08:23 Urine Glucose (UA) Negative (NEGATIVE) 05/02/21 08:23 Urine Ketones Negative (NEGATIVE) 05/02/21 08:23 Urine Occult Blood Negative (NEGATIVE) 05/02/21 08:23 Urine Nitrite Negative (NEGATIVE) 05/02/21 08:23 Urine Bilirubin Negative (NEGATIVE) 05/02/21 08:23 Urine Urobilinogen 1+ (NORMAL) 05/02/21 08:23 Ur Leukocyte Esterase Negative (NEGATIVE) 05/02/21 08:23 Urine RBC None seen /HPF (0-3) 05/02/21 08:23 Urine WBC None seen /HPF (0-5) 05/02/21 08:23 Ur Squamous Epith Cells Rare /HPF (NEGATIVE) 05/02/21 08:23 Amorphous Sediment Trace /HPF (NEGATIVE) 05/02/21 08:23 Urine Bacteria Negative /HPF (NEGATIVE) 05/02/21 08:23 Ur Culture Indicated? No/not indicated 05/02/21 08:23 Urine Opiates Screen Negative (NEG=<300) 05/02/21 08:23 Urine Methadone Screen Negative (NEG=<300) 05/02/21 08:23 Ur Barbiturates Screen Negative (NEG=<200) 05/02/21 08:23 Ur Phencyclidine Scrn Negative (NEG=<25) 05/02/21 08:23 Ur Amphetamines Screen Negative (NEG=<1000) 05/02/21 08:23 U Benzodiazepines Scrn Positive (NEG=<200) 05/02/21 08:23 Urine Cocaine Screen Negative (NEG=<300) 05/02/21 08:23 U Marijuana (THC) Screen Negative (NEG=<50) 05/02/21 08:23 Ethyl Alcohol mg/dL 176 mg/dL (0-19.9) H 05/01/21 19:41 SARS CoV-2 RNA Rapid HIWOT Negative (NEGATIVE) 05/01/21 17:10 Plan (1) Alcohol use disorder: Status: Acute Plan: [employer] on Alcohol Cessation. (2) Alcohol withdrawal hallucinosis: Status: Resolved Narrative Support Text: Overall stable. Possible d/c home in am. Plan: Will continue Alcohol Detox protocol. (3) HTN (hypertension): Status: Acute Plan: Monitor. Will resume Metoprolol ER 100 mg po daily today. (4) Hypokalemia: Status: Acute Plan: Replace with K replacement protocol. (5) Hypomagnesemia: Status: Acute Plan: Replace.
[2021-05-04] MEDS ORDERED: PHENOBARBITAL TAB 15 MG (16.2MG) PO SCH (21:00)
[2021-05-04] MEDS: NS 1,000 ML IV 1,000 ML with MAGNESIUM SULFATE 50% INJ VIAL 1 G, MVI INJ (ADULT) 10 ML IV SCH ×3 (21:05)
[2021-05-05] MEDS: VALIUM INJ IVP PRN ×2 (01:45→09:53)
[2021-05-05] MEDS: LIBRIUM PO PRN ×2 (04:28→09:52)
[2021-05-05 07:31] LABS: BLOOD UREA NITROGEN 13 mg/dL (7-18); CALCIUM 8.4 mg/dL (8.5-10.1); CARBON DIOXIDE 23.2 mmol/L (21-32); CREATININE 0.58 mg/dL (0.70-1.30); eGFR NON BLACK RACES > 60 (>60)
[2021-05-05 07:49] LABS: CHLORIDE 104 mmol/L (98-107); SODIUM 139 mmol/L (136-145)
[2021-05-05] MEDS ORDERED: TOPROL XL PO ONE (09:41)
[2021-05-05] MEDS: TOPROL XL PO SCH ×2 (09:52→10:23)
[2021-05-05] MEDS ORDERED: PHENOBARBITAL TAB 30 MG (32.4MG) PO SCH ×2 (10:00→13:00)
[2021-05-05 11:16] VITALS: BP 155/88
--- NOTE | 2021-05-30 09:55 | PCM.DCPLAN ---
DISCHARGE SUMMARY Admission Date Date of Admission: 05/01/21 Discharge Date Discharge Date: 05/05/21 Admission Diagnoses (1) Alcohol use disorder: Status: Acute (2) Alcohol withdrawal hallucinosis: Status: Resolved (3) HTN (hypertension): Status: Acute (4) Hypokalemia: Status: Acute (5) Hypomagnesemia: Status: Acute Discharge Diagnoses Discharge Diagnosis: 1. Alcohol withdrawl hallucinosis- Resolved 2. Alcohol use disorder. 3. Hypokalema- Resolved 4. Hypomagnesemia- Resolved 5. HTN- Stable Discharge Medications Discharge Medications: Prescriptions: Hospital Course Vital Signs: Temperature 97.3 F Pulse Rate [Left Brachial] 76 Pulse Rate [Right Brachial] 83 Respiratory Rate 20 Blood Pressure [Left Arm] 155/88 Blood Pressure [Right Arm] 157/76 O2 Sat by Pulse Oximetry 96 Latest Lab Results: Laboratory Last Values WBC 7.3 X10^3/uL (3.6-10.0) 05/03/21 05:23 RBC 3.98 X10^6/uL (4.7-6.0) L 05/03/21 05:23 Hgb 13.3 g/dL (13.5-18.0) L 05/03/21 05:23 Hct 38.6 % (42.0-54.0) L 05/03/21 05:23 MCV 97.1 fL (80.0-100.0) 05/03/21 05:23 MCH 33.4 pg (27.0-34.0) 05/03/21 05:23 MCHC 34.4 g/dL (33.0-35.0) 05/03/21 05:23 RDW 16.5 % (11.6-16.5) 05/03/21 05:23 Plt Count 214 X10^3/uL (150.0-450.0) 05/03/21 05:23 MPV 8.7 fL (7.4-11.0) 05/03/21 05:23 Neut % (Auto) 60.4 % (42.0-75.0) 05/03/21 05:23 Lymph % (Auto) 26.1 % (21.0-51.0) 05/03/21 05:23 [place] % (Auto) 9.5 % (0.0-13.0) 05/03/21 05:23 Eos % (Auto) 3.1 % (0.9-2.9) H 05/03/21 05:23 Baso % (Auto) 0.9 % (0.2-1.0) 05/03/21 05:23 Neut # (Auto) 4.4 x10^3/uL (2.2-4.8) 05/03/21 05:23 Lymph # (Auto) 1.9 X10^3/uL (1.3-2.9) 05/03/21 05:23 [place] # (Auto) 0.7 x10^3/uL (0.3-0.8) 05/03/21 05:23 Eos # (Auto) 0.2 x10^3/uL (0.0-0.2) 05/03/21 05:23 Baso # (Auto) 0.1 X10^3/uL (0.0-0.1) 05/03/21 05:23 Absolute Nucleated RBC 0.1 /100WBC 05/03/21 05:23 Sodium 139 mmol/L (136-145) 05/05/21 05:52 Corrected Sodium TNP 05/05/21 05:52 Potassium 3.9 mmol/L (3.5-5.1) 05/05/21 05:52 Chloride 104 mmol/L (98-107) 05/05/21 05:52 Carbon Dioxide 23.2 mmol/L (21-32) 05/05/21 05:52 BUN 13 mg/dL (7-18) 05/05/21 05:52 Creatinine 0.58 mg/dL (0.70-1.30) L 05/05/21 05:52 Est GFR (MDRD) Af Amer > 60 (>60) 05/05/21 05:52 Est GFR (MDRD) Non-Af > 60 (>60) 05/05/21 05:52 Glucose 91 mg/dL (65-99) 05/05/21 05:52 Calcium 8.4 mg/dL (8.5-10.1) L 05/05/21 05:52 Corrected Calcium 9.1 mg/dL (8.5-10.1) 05/03/21 05:23 Magnesium 1.9 mg/dL (1.7-2.9) 05/05/21 05:52 Total Bilirubin 0.80 mg/dL (0.2-1.0) 05/03/21 05:23 AST 31 Units/L (15-37) 05/03/21 05:23 ALT 30 Units/L (12-78) 05/03/21 05:23 Alkaline Phosphatase 62 Units/L (46-116) 05/03/21 05:23 Total Protein 7.3 g/dL (6.4-8.2) 05/03/21 05:23 Albumin 3.3 g/dL (3.4-5.0) L 05/03/21 05:23 Globulin 4.0 g/dL (2.5-4.5) 05/03/21 05:23 Albumin/Globulin Ratio 0.8 Ratio (1.1-2.1) L 05/03/21 05:23 Specimen Type Clean catch urine 05/02/21 08:23 Urine Color Yellow (YELLOW) 05/02/21 08: Urine Appearance Clear (CLEAR) 05/02/21 08: Urine pH 6.0 (5.0 - 8.0) 05/02/21 08:23 Ur Specific [place] 1.025 (1.000-1.030) 05/02/21 08: Urine Protein 2+ (NEGATIVE) 05/02/21 08: Urine Glucose (UA) Negative (NEGATIVE) 05/02/21 08: Urine Ketones Negative (NEGATIVE) 05/02/21 08:23 Urine Occult Blood Negative (NEGATIVE) 05/02/21 08: Urine Nitrite Negative (NEGATIVE) 05/02/21 08: Urine Bilirubin Negative (NEGATIVE) 05/02/21 08:23 Urine Urobilinogen 1+ (NORMAL) 05/02/21 08:23 Ur Leukocyte Esterase Negative (NEGATIVE) 05/02/21 08:23 Urine RBC None seen /HPF (0-3) 05/02/21 08: Urine WBC None seen /HPF (0-5) 05/02/21 08:23 Ur Squamous Epith Cells Rare /HPF (NEGATIVE) 05/02/21 08: Amorphous Sediment Trace /HPF (NEGATIVE) 05/02/21 08: Urine Bacteria Negative /HPF (NEGATIVE) 05/02/21 08: Ur Culture Indicated? No/not indicated 05/02/21 08:23 Urine Opiates Screen Negative (NEG=<300) 05/02/21 08:23 Urine Methadone Screen Negative (NEG=<300) 05/02/21 08:23 Ur Barbiturates Screen Negative (NEG=<200) 05/02/21 08:23 Ur Phencyclidine Scrn Negative (NEG=<25) 05/02/21 08:23 Ur Amphetamines Screen Negative (NEG=<1000) 05/02/21 08:23 U Benzodiazepines Scrn Positive (NEG=<200) 05/02/21 08:23 Urine Cocaine Screen Negative (NEG=<300) 05/02/21 08:23 U Marijuana (THC) Screen Negative (NEG=<50) 05/02/21 08:23 Ethyl Alcohol mg/dL 176 mg/dL (0-19.9) H 05/01/21 19:41 SARS CoV-2 RNA Rapid HIWOT Negative (NEGATIVE) 05/01/21 17:10 Hospital Course: After adnission the patient was found to have low K and Mg levels which were replaced. He never had any severe DT's but had only minor auditory hallucinations during his day which resoled after the first 1-2 days of hospitalization. He was treated with the alcohol detox protocol which he tolerated well. 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 On the morning he had still not had any severe DT's so he was discharged home in stable condition. He has PO Valium at home he may use for the next 10 days for any signs or symptoms of delerium tremens. Instructions Instructions: Alcohol Use Disorder Alcohol Intoxication, [id number] Alcohol Abuse and Nutrition Steps to Quit Smoking, [id number] Alcohol Withdrawal Syndrome Forms: Excuse From Work or School Precautions for COVID19 [facility] Social Distancing
== END 2021-05-05 11:25 | disposition home or self-care (01) | DRG 897 ==
LOC: MED/SURG
PROVIDERS: ADMIT Family Medicine; ATTEND Family Medicine
DX: Z20.822 Contact with and (suspected) exposure to COVID-19; I10 Essential (primary) hypertension; F10.232 Alcohol dependence with withdrawal with perceptual disturbance; E87.6 Hypokalemia; E83.42 Hypomagnesemia

== ENCOUNTER 2021-07-17 17:46 | Observation (INO) ==
[2021-07-17] MEDS ORDERED: PHENOBARBITAL SODIUM INJ 65 MG VIAL IM PRN (19:06)
[2021-07-17] MEDS ORDERED: KAOPECTATE (NEW FORMULA) PO PRN (19:06)
[2021-07-17] MEDS ORDERED: MAALOX or MYLANTA PO PRN (19:06)
[2021-07-17] MEDS ORDERED: MOTRIN TAB 800 MG PO PRN (19:06)
[2021-07-17] MEDS ORDERED: LIBRIUM PO PRN (19:06)
[2021-07-17] MEDS ORDERED: MILK OF MAGNESIA PO PRN (19:06)
[2021-07-17 19:29] LABS: RED CELL DISTRIBUTION WIDTH 16.4 % (11.6-16.5)
[2021-07-17 19:36] LABS: BASOPHILS # (AUTO) 0.1 X10^3/uL (0.0-0.1); BASOPHILS % (AUTO) 1.2 % (0.2-1.0); EOSINOPHILS # (AUTO) 0.4 x10^3/uL (0.0-0.2); EOSINOPHILS % (AUTO) 4.4 % (0.9-2.9); HEMATOCRIT 38.7 % (42.0-54.0); LYMPHOCYTES % (AUTO) 33.6 % (21.0-51.0); MEAN CORPUSCULAR HEMOGLOBIN 32.8 pg (27.0-34.0); MEAN CORPUSCULAR HGB CONC 33.6 g/dL (33.0-35.0); MEAN CORPUSCULAR VOLUME 97.8 fL (80.0-100.0); MEAN PLATELET VOLUME 8.1 fL (7.4-11.0); MONOCYTES # (AUTO) 0.7 x10^3/uL (0.3-0.8); MONOCYTES % (AUTO) 8.2 % (0.0-13.0); NEUTROPHILS # (AUTO) 4.6 x10^3/uL (2.2-4.8); NEUTROPHILS % (AUTO) 52.6 % (42.0-75.0); RED BLOOD COUNT 3.96 X10^6/uL (4.7-6.0); WHITE BLOOD COUNT 8.8 X10^3/uL (3.6-10.0)
[2021-07-17] MEDS: MAGNESIUM SULFATE 1 GRAM/100 mL PREMIX 1 G/100 ML BAG IV SCH (20:38)
[2021-07-17 20:45] LABS: BILIRUBIN,URINE NEGATIVE (NEGATIVE); BLOOD/HEMOGLOBIN,URINE NEGATIVE (NEGATIVE); GLUCOSE, URINE NEGATIVE (NEGATIVE); KETONES,URINE NEGATIVE (NEGATIVE); LEUKOCYTE ESTERASE ,URINE NEGATIVE (NEGATIVE); NITRITES,URINE NEGATIVE (NEGATIVE); PROTEIN,URINE 2+ (NEGATIVE); UROBILINOGEN,URINE 2+ (NORMAL)
[2021-07-17 20:57] LABS: APPEARANCE,URINE CLEAR (CLEAR); COLOR,URINE AMBER (YELLOW)
[2021-07-17 20:58] LABS: BACTERIA,URINE TRACE /HPF (NEGATIVE); HYALINE CASTS, URINE NUMEROUS /LPF (NEGATIVE); RBC,URINE 0-2 /HPF (0-3); SQUAMOUS EPITHELIAL CELL,UR FEW /HPF (NEGATIVE)
[2021-07-17] MEDS: THIAMINE HCL INJ IM SCH (21:00)
[2021-07-17] MEDS: PHENOBARBITAL TAB 30 MG (32.4MG) PO SCH (22:19)
[2021-07-17] MEDS: AMBIEN PO SCH (22:45)
[2021-07-18] MEDS: MAGNESIUM SULFATE 1 GRAM/100 mL PREMIX 1 G/100 ML BAG IV SCH (05:02)
[2021-07-18 06:14] LABS: BASOPHILS # (AUTO) 0.1 X10^3/uL (0.0-0.1); BASOPHILS % (AUTO) 1.4 % (0.2-1.0); EOSINOPHILS # (AUTO) 0.3 x10^3/uL (0.0-0.2); EOSINOPHILS % (AUTO) 5.6 % (0.9-2.9); HEMATOCRIT 35.9 % (42.0-54.0); HEMOGLOBIN 12.3 g/dL (13.5-18.0); LYMPHOCYTES # (AUTO) 2.2 X10^3/uL (1.3-2.9); LYMPHOCYTES % (AUTO) 35.2 % (21.0-51.0); MEAN CORPUSCULAR HEMOGLOBIN 33.4 pg (27.0-34.0); MEAN CORPUSCULAR HGB CONC 34.1 g/dL (33.0-35.0); MEAN PLATELET VOLUME 8.3 fL (7.4-11.0); MONOCYTES # (AUTO) 0.6 x10^3/uL (0.3-0.8); MONOCYTES % (AUTO) 10.1 % (0.0-13.0); NEUTROPHILS # (AUTO) 2.9 x10^3/uL (2.2-4.8); NEUTROPHILS % (AUTO) 47.7 % (42.0-75.0); RED BLOOD COUNT 3.67 X10^6/uL (4.7-6.0); RED CELL DISTRIBUTION WIDTH 16.6 % (11.6-16.5); WHITE BLOOD COUNT 6.1 X10^3/uL (3.6-10.0)
[2021-07-18 06:33] LABS: ALANINE AMINOTRANSFERASE 260 Units/L (12-78); ALBUMIN 3.5 g/dL (3.4-5.0); ALKALINE PHOSPHATASE 66 Units/L (46-116); ASPARTATE AMINO TRANSFERASE 281 Units/L (15-37); BLOOD UREA NITROGEN 13 mg/dL (7-18); CALCIUM 8.5 mg/dL (8.5-10.1); CHLORIDE 102 mmol/L (98-107); CREATININE 0.92 mg/dL (0.70-1.30); SODIUM 140 mmol/L (136-145); TOTAL PROTEIN 7.4 g/dL (6.4-8.2); eGFR NON BLACK RACES > 60 (>60)
[2021-07-18] MEDS ORDERED: NS 1,000 ML IV 1,000 ML with MAGNESIUM SULFATE 50% INJ VIAL 1 G, MVI INJ (ADULT) 10 ML,... IV SCH ×4 (08:10)
[2021-07-18] MEDS: THIAMINE HCL INJ IM SCH (08:35)
[2021-07-18] MEDS: NS IV SCH ×4 (08:42)
[2021-07-18] MEDS: PHENOBARBITAL TAB 30 MG (32.4MG) PO SCH ×4 (08:42→21:30)
[2021-07-18] MEDS: MVI IV SCH ×4 (08:42)
[2021-07-18] MEDS: VALIUM PO SCH ×3 (08:42→21:30)
[2021-07-18] MEDS: [UNRECOGNIZED DRUG - OTHER] IV SCH ×4 (08:42)
--- NOTE | 2021-07-18 10:10 | DR.H&P ---
H&P History & Physical for Day of: H&P Date: 07/18/21 Chief Complaint Chief Complaint: alcohol intoxication Allergies Allergies Allergy/AdvReac Type Severity Reaction Status Date / Time No Known Drug Allergies Allergy Verified 02/11/21 13:01 History of Present Illness History of Present Illness: Mr Henley is a 46y/o male with a PMH of alcohol use disorder and HTN presents for alcohol detox. He was directly admitted to the hospital. He has been admitted before for the same thing, last admission May 2021. His last drink was yesterday at 4 pm. He drinks a 5th of alcohol daily. He reports being a chronic drinker for years, worse in the past 3 years. Denies being in any therapy or outpatient rehab for this. Denies hx of seizures or being intubated. Denies N/V/D or abdominal pain. He reports feeling anxious and jittery. He states valium works well for his tremors and keeps him calm. Labs reviewed Plan: continue detox protocol, change Librium to scheduled Valium. Replace electrolytes as needed. Start banana bag with IV thiamine, mag and MVI. Resume home medications. Monitor for DTs. Monitor AM labs/imaging. Past Medical History Past Medical History: Depression, Migraines, Headaches and Hypertension Past Surgical History Surgical History: Ortho Surgery Family History Family Medical History: [place] and Hypertension Social History Does patient currently use any type of tobacco product: Yes Have you used tobacco products in the last 12 months: Yes Type of Tobacco Use: Cigarettes Alcohol Use: Heavy and DAILY Drug Use: Prescription Drugs Prescription drug monitoring program results: PDMP reviewed and no concerns identified Medications Home Medications: No Known Drug Allergies Allergy (Verified 02/11/21 13:01) Labs Result Diagrams: 07/18/21 05:40 07/18/21 05:40 Labs: Laboratory WBC 6.1 X10^3/uL (3.6-10.0) 07/18/21 05:40 RBC 3.67 X10^6/uL (4.7-6.0) L 07/18/21 05:40 Hgb 12.3 g/dL (13.5-18.0) L 07/18/21 05:40 Hct 35.9 % (42.0-54.0) L 07/18/21 05:40 MCV 98.0 fL (80.0-100.0) 07/18/21 05:40 MCH 33.4 pg (27.0-34.0) 07/18/21 05:40 MCHC 34.1 g/dL (33.0-35.0) 07/18/21 05:40 RDW 16.6 % (11.6-16.5) H 07/18/21 05:40 Plt Count 346 X10^3/uL (150.0-450.0) 07/18/21 05:40 MPV 8.3 fL (7.4-11.0) 07/18/21 05:40 Neut % (Auto) 47.7 % (42.0-75.0) 07/18/21 05:40 Lymph % (Auto) 35.2 % (21.0-51.0) 07/18/21 05:40 [place] % (Auto) 10.1 % (0.0-13.0) 07/18/21 05:40 Eos % (Auto) 5.6 % (0.9-2.9) H 07/18/21 05:40 Baso % (Auto) 1.4 % (0.2-1.0) H 07/18/21 05:40 Neut # (Auto) 2.9 x10^3/uL (2.2-4.8) 07/18/21 05:40 Lymph # (Auto) 2.2 X10^3/uL (1.3-2.9) 07/18/21 05:40 [place] # (Auto) 0.6 x10^3/uL (0.3-0.8) 07/18/21 05:40 Eos # (Auto) 0.3 x10^3/uL (0.0-0.2) H 07/18/21 05:40 Baso # (Auto) 0.1 X10^3/uL (0.0-0.1) 07/18/21 05:40 Absolute Nucleated RBC 0.1 /100WBC 07/18/21 05:40 Sodium 140 mmol/L (136-145) 07/18/21 05:40 Corrected Sodium TNP 07/18/21 05:40 Potassium 3.1 mmol/L (3.5-5.1) L 07/18/21 05:40 Chloride 102 mmol/L (98-107) 07/18/21 05:40 Carbon Dioxide 26.0 mmol/L (21-32) 07/18/21 05:40 BUN 13 mg/dL (7-18) 07/18/21 05:40 Creatinine 0.92 mg/dL (0.70-1.30) 07/18/21 05:40 Est GFR (MDRD) Af Amer > 60 (>60) 07/18/21 05:40 Est GFR (MDRD) Non-Af > 60 (>60) 07/18/21 05:40 Glucose 85 mg/dL (65-99) 07/18/21 05:40 Calcium 8.5 mg/dL (8.5-10.1) 07/18/21 05:40 Corrected Calcium TNP 07/18/21 05:40 Magnesium 2.0 mg/dL (1.7-2.9) 07/18/21 05:40 Total Bilirubin 0.70 mg/dL (0.2-1.0) 07/18/21 05:40 AST 281 Units/L (15-37) H 07/18/21 05:40 ALT 260 Units/L (12-78) H 07/18/21 05:40 Alkaline Phosphatase 66 Units/L (46-116) 07/18/21 05:40 Total Protein 7.4 g/dL (6.4-8.2) 07/18/21 05:40 Albumin 3.5 g/dL (3.4-5.0) 07/18/21 05:40 Globulin 3.9 g/dL (2.5-4.5) 07/18/21 05:40 Albumin/Globulin Ratio 0.9 Ratio (1.1-2.1) L 07/18/21 05:40 Specimen Type Clean catch urine 07/17/21 20:39 Urine Color [place] (YELLOW) 07/17/21 20:39 Urine Appearance Clear (CLEAR) 07/17/21 20:39 Urine pH 5.0 (5.0 - 8.0) 07/17/21 20:39 Ur Specific [place] 1.025 (1.000-1.030) 07/17/21 20:39 Urine Protein 2+ (NEGATIVE) 07/17/21 20:39 Urine Glucose (UA) Negative (NEGATIVE) 07/17/21 20:39 Urine Ketones Negative (NEGATIVE) 07/17/21 20:39 Urine Blood Negative (NEGATIVE) 07/17/21 20:39 Urine Nitrite Negative (NEGATIVE) 07/17/21 20:39 Urine Bilirubin Negative (NEGATIVE) 07/17/21 20:39 Urine Urobilinogen 2+ (NORMAL) 07/17/21 20:39 Ur Leukocyte Esterase Negative (NEGATIVE) 07/17/21 20:39 Urine RBC 0-2 /HPF (0-3) 07/17/21 20:39 Urine WBC 0-2 /HPF (0-5) 04 20:39 Ur Squamous Epith Cells Few /HPF (NEGATIVE) 07/17/21 20:39 Urine Bacteria Trace /HPF (NEGATIVE) 07/17/21 20:39 Hyaline Casts Numerous /LPF (NEGATIVE) 07/17/21 20:39 Urine Mucus Many /HPF (NEGATIVE) 07/17/21 20:39 Ur Culture Indicated? No/not indicated 07/17/21 20:39 Urine Opiates Screen Positive (NEG=<300) 07/17/21 20:39 Urine Methadone Screen Negative (NEG=<300) 07/17/21 20:39 Ur Barbiturates Screen Negative (NEG=<200) 07/17/21 20:39 Ur Phencyclidine Scrn Negative (NEG=<25) 07/17/21 20:39 Ur Amphetamines Screen Negative (NEG=<1000) 07/17/21 20:39 U Benzodiazepines Scrn Positive (NEG=<200) 07/17/21 20:39 Urine Cocaine Screen Negative (NEG=<300) 07/17/21 20:39 U Marijuana (THC) Screen Negative (NEG=<50) 07/17/21 20:39 Ethyl Alcohol mg/dL 264 mg/dL (0-19.9) H 07/17/21 19:18 SARS CoV-2 RNA Rapid HIWOT Negative (NEGATIVE) 07/17/21 19:20 Review of Systems Constitutional: No Symptoms Reported Eyes: No Symptoms Reported ENT: No Symptoms Reported Respiratory: No Symptoms Reported Cardiovascular: No Symptoms Reported Gastrointestinal: No Symptoms Reported Genitourinary: No Symptoms Reported Musculoskeletal: No Symptoms Reported Skin: No Symptoms Reported Neurological: No Symptoms Reported Physical Exam Vital Signs: Temperature 97.6 F Pulse Rate [Left Radial] 77 Respiratory Rate 17 Blood Pressure [Left Arm] 112/70 O2 Sat by Pulse Oximetry 96 Oriented: Normal Eyes: Normal Ear: Normal Nose: Normal Throat: Normal Respiratory: Clear Throughout Cardiovascular: Normal Auscultation: Bowel Sounds: Normal Palpation: Normal Tenderness: Normal Skin: Normal Musculoskeletal: Normal and Instability (mild hand tremors noted ) Psychiatric: Anxiety Mood Description: Anxious Affect: Anxious Speech Pattern: Clear and Appropriate Assessment/Plan (1) Alcohol intoxication: Qualifiers: Complication of substance-induced condition: uncomplicated Qualified Code(s): F10.920 - Alcohol use, unspecified with intoxication, uncomplicated Status: Acute (2) Hypomagnesemia: Status: Acute (3) Hypokalemia: Status: Acute (4) Alcohol use disorder: Status: Acute (5) HTN (hypertension): Qualifiers: Hypertension type: primary hypertension Qualified Code(s): I10 - Essential (primary) hypertension Status: Acute Review H&P Reviewed: Yes Patient was examined?: Yes
[2021-07-18] MEDS ORDERED: TOPROL XL PO ONE (10:49)
[2021-07-18] MEDS: TOPROL XL PO SCH (10:51)
[2021-07-18] MEDS: NORVASC TAB 10 MG PO SCH (10:51)
[2021-07-18] MEDS ORDERED: K-DUR TAB 20 MEQ PO PRN (20:56)
[2021-07-18] MEDS ORDERED: POTASSIUM CHL 60 MEQ/NS 0.45% 500 ML IV PRN (20:56)
[2021-07-18] MEDS ORDERED: KLOR-CON PO PRN (20:56)
[2021-07-18] MEDS ORDERED: POTASSIUM CHLORIDE LIQ 20 MEQ UDC PO PRN (20:56)
[2021-07-18] MEDS ORDERED: K-RIDER 10 MEQ/NS 100 ML 10 MEQ/100 ML BAG IV PRN (20:56)
[2021-07-18] MEDS ORDERED: MICRO K EXTEN CAP 10 MEQ PO PRN (20:56)
[2021-07-18] MEDS ORDERED: POTASSIUM CHL 40 MEQ/NS 0.45% 500 ML IV PRN (20:56)
[2021-07-18] MEDS: AMBIEN PO SCH (21:30)
[2021-07-19] MEDS: VALIUM PO SCH (05:38)
[2021-07-19 06:15] LABS: BASOPHILS # (AUTO) 0.1 X10^3/uL (0.0-0.1); EOSINOPHILS # (AUTO) 0.4 x10^3/uL (0.0-0.2); EOSINOPHILS % (AUTO) 4.9 % (0.9-2.9); HEMATOCRIT 38.8 % (42.0-54.0); HEMOGLOBIN 13.2 g/dL (13.5-18.0); LYMPHOCYTES # (AUTO) 1.8 X10^3/uL (1.3-2.9); LYMPHOCYTES % (AUTO) 23.4 % (21.0-51.0); MEAN CORPUSCULAR HEMOGLOBIN 33.5 pg (27.0-34.0); MEAN CORPUSCULAR HGB CONC 34.2 g/dL (33.0-35.0); MEAN CORPUSCULAR VOLUME 97.9 fL (80.0-100.0); MEAN PLATELET VOLUME 8.3 fL (7.4-11.0); MONOCYTES # (AUTO) 0.8 x10^3/uL (0.3-0.8); MONOCYTES % (AUTO) 9.9 % (0.0-13.0); NEUTROPHILS # (AUTO) 4.7 x10^3/uL (2.2-4.8); NEUTROPHILS % (AUTO) 60.8 % (42.0-75.0); RED BLOOD COUNT 3.96 X10^6/uL (4.7-6.0); RED CELL DISTRIBUTION WIDTH 16.4 % (11.6-16.5); WHITE BLOOD COUNT 7.8 X10^3/uL (3.6-10.0)
[2021-07-19 06:35] LABS: ALANINE AMINOTRANSFERASE 228 Units/L (12-78); ALBUMIN 3.6 g/dL (3.4-5.0); ALKALINE PHOSPHATASE 73 Units/L (46-116); ASPARTATE AMINO TRANSFERASE 165 Units/L (15-37); BLOOD UREA NITROGEN 8 mg/dL (7-18); CALCIUM 8.7 mg/dL (8.5-10.1); CARBON DIOXIDE 27.4 mmol/L (21-32); CHLORIDE 101 mmol/L (98-107); CREATININE 0.74 mg/dL (0.70-1.30); MAGNESIUM 2.2 mg/dL (1.7-2.9); SODIUM 138 mmol/L (136-145); TOTAL PROTEIN 7.9 g/dL (6.4-8.2); eGFR NON BLACK RACES > 60 (>60)
[2021-07-19 08:10] VITALS: BP 155/70
[2021-07-19 08:32] VITALS: BMI 34.8
[2021-07-19] MEDS ORDERED: TOPROL XL PO ONE (09:40)
[2021-07-19] MEDS: NS IV SCH ×4 (10:01)
[2021-07-19] MEDS: MVI IV SCH ×4 (10:01)
[2021-07-19] MEDS: NORVASC TAB 10 MG PO SCH (10:01)
[2021-07-19] MEDS: TOPROL XL PO SCH (10:01)
[2021-07-19] MEDS: PHENOBARBITAL TAB 30 MG (32.4MG) PO SCH (10:01)
[2021-07-19] MEDS: [UNRECOGNIZED DRUG - OTHER] IV SCH ×4 (10:01)
--- NOTE | 2021-07-19 13:53 | PCM.PROG ---
Progress Note Progress Note for Day of Date of Exam: 07/19/21 Subjective Subjective: Patient seen at bedside, no events overnight. He states he feels little better. He is still anxious and has some tremors but it has improved with Valium. Denies N/V/D or abdominal pain. He has been eating his meals. Labs reviewed Plan: continue hydration with banana bag, follow detox protocol. Continue Valium. Replace K as per protocol. Monitor for DTs. Monitor AM labs. Past Medical Family Social History Past Med/Fam/Surg Hx: No changes since H&P Allergies: Allergies No Known Drug Allergies Allergy (Verified 02/11/21 13:01) Review of Systems ROS: No change since H&P Vital Signs and I&O's Vital Signs: Temperature 98.8 F Pulse Rate [Left Radial] 82 Respiratory Rate 20 Blood Pressure [Right Arm] 155/70 Blood Pressure [Left Arm] 129/91 O2 Sat by Pulse Oximetry 98 Intake and Output: Intake & Output 07/16/21 07/17/21 07/18/21 07/19/21 23:59 23:59 23:59 23:59 Intake Total 457 / 457 2720 / 2720 360 / 360 Balance 457 / 457 2720 / 2720 360 / 360 Physical Exam Oriented: Normal Eyes: Normal Ear: Normal Nose: Normal Throat: Normal Respiratory: Normal Cardiovascular: Normal Auscultation: Bowel Sounds: Normal Tenderness: Normal Skin: Normal Musculoskeletal: Normal and Instability (mild hand tremors noted ) Psychiatric: Anxiety Mood Description: Anxious Affect: Anxious Speech Pattern: Clear and Appropriate Laboratory and Diagnostics Result Diagrams: 07/19/21 05:50 07/19/21 05:50 Labs: Laboratory WBC 7.8 X10^3/uL (3.6-10.0) 07/19/21 05:50 RBC 3.96 X10^6/uL (4.7-6.0) L 07/19/21 05:50 Hgb 13.2 g/dL (13.5-18.0) L 07/19/21 05:50 Hct 38.8 % (42.0-54.0) L 07/19/21 05:50 MCV 97.9 fL (80.0-100.0) 07/19/21 05:50 MCH 33.5 pg (27.0-34.0) 07/19/21 05:50 MCHC 34.2 g/dL (33.0-35.0) 07/19/21 05:50 RDW 16.4 % (11.6-16.5) 07/19/21 05:50 Plt Count 401 X10^3/uL (150.0-450.0) 07/19/21 05:50 MPV 8.3 fL (7.4-11.0) 07/19/21 05:50 Neut % (Auto) 60.8 % (42.0-75.0) 07/19/21 05:50 Lymph % (Auto) 23.4 % (21.0-51.0) 07/19/21 05:50 [place] % (Auto) 9.9 % (0.0-13.0) 07/19/21 05:50 Eos % (Auto) 4.9 % (0.9-2.9) H 07/19/21 05:50 Baso % (Auto) 1.0 % (0.2-1.0) 07/19/21 05:50 Neut # (Auto) 4.7 x10^3/uL (2.2-4.8) 07/19/21 05:50 Lymph # (Auto) 1.8 X10^3/uL (1.3-2.9) 07/19/21 05:50 [place] # (Auto) 0.8 x10^3/uL (0.3-0.8) 07/19/21 05:50 Eos # (Auto) 0.4 x10^3/uL (0.0-0.2) H 07/19/21 05:50 Baso # (Auto) 0.1 X10^3/uL (0.0-0.1) 07/19/21 05:50 Absolute Nucleated RBC 0.1 /100WBC 07/19/21 05:50 Sodium 138 mmol/L (136-145) 07/19/21 05:50 Corrected Sodium TNP 07/19/21 05:50 Potassium 3.4 mmol/L (3.5-5.1) L 07/19/21 05:50 Chloride 101 mmol/L (98-107) 07/19/21 05:50 Carbon Dioxide 27.4 mmol/L (21-32) 07/19/21 05:50 BUN 8 mg/dL (7-18) 07/19/21 05:50 Creatinine 0.74 mg/dL (0.70-1.30) 07/19/21 05:50 Est GFR (MDRD) Af Amer > 60 (>60) 07/19/21 05:50 Est GFR (MDRD) Non-Af > 60 (>60) 07/19/21 05:50 Glucose 103 mg/dL (65-99) H 07/19/21 05:50 Calcium 8.7 mg/dL (8.5-10.1) 07/19/21 05:50 Corrected Calcium TNP 07/19/21 05:50 Magnesium 2.2 mg/dL (1.7-2.9) 07/19/21 05:50 Total Bilirubin 1.00 mg/dL (0.2-1.0) 07/19/21 05:50 AST 165 Units/L (15-37) H 07/19/21 05:50 ALT 228 Units/L (12-78) H 07/19/21 05:50 Alkaline Phosphatase 73 Units/L (46-116) 07/19/21 05:50 Total Protein 7.9 g/dL (6.4-8.2) 07/19/21 05:50 Albumin 3.6 g/dL (3.4-5.0) 07/19/21 05:50 Globulin 4.3 g/dL (2.5-4.5) 07/19/21 05:50 Albumin/Globulin Ratio 0.8 Ratio (1.1-2.1) L 07/19/21 05:50 Specimen Type Clean catch urine 07/17/21 20:39 Urine Color [place] (YELLOW) 07/17/21 20:39 Urine Appearance Clear (CLEAR) 07/17/21 20:39 Urine pH 5.0 (5.0 - 8.0) 07/17/21 20:39 Ur Specific [place] 1.025 (1.000-1.030) 07/17/21 20:39 Urine Protein 2+ (NEGATIVE) 07/17/21 20:39 Urine Glucose (UA) Negative (NEGATIVE) 07/17/21 20:39 Urine Ketones Negative (NEGATIVE) 07/17/21 20:39 Urine Blood Negative (NEGATIVE) 07/17/21 20:39 Urine Nitrite Negative (NEGATIVE) 07/17/21 20:39 Urine Bilirubin Negative (NEGATIVE) 07/17/21 20:39 Urine Urobilinogen 2+ (NORMAL) 07/17/21 20:39 Ur Leukocyte Esterase Negative (NEGATIVE) 07/17/21 20:39 Urine RBC 0-2 /HPF (0-3) 07/17/21 20:39 Urine WBC 0-2 /HPF (0-5) 07/17/21 20:39 Ur Squamous Epith Cells Few /HPF (NEGATIVE) 07/17/21 20:39 Urine Bacteria Trace /HPF (NEGATIVE) 07/17/21 20:39 Hyaline Casts Numerous /LPF (NEGATIVE) 07/17/21 20:39 Urine Mucus Many /HPF (NEGATIVE) 07/17/21 20:39 Ur Culture Indicated? No/not indicated 07/17/21 20:39 Urine Opiates Screen Positive (NEG=<300) 07/17/21 20:39 Urine Methadone Screen Negative (NEG=<300) 07/17/21 20:39 Ur Barbiturates Screen Negative (NEG=<200) 07/17/21 20:39 Ur Phencyclidine Scrn Negative (NEG=<25) 07/17/21 20:39 Ur Amphetamines Screen Negative (NEG=<1000) 07/17/21 20:39 U Benzodiazepines Scrn Positive (NEG=<200) 07/17/21 20:39 Urine Cocaine Screen Negative (NEG=<300) 07/17/21 20:39 U Marijuana (THC) Screen Negative (NEG=<50) 07/17/21 20:39 Ethyl Alcohol mg/dL 264 mg/dL (0-19.9) H 07/17/21 19:18 SARS CoV-2 RNA Rapid HIWOT Negative (NEGATIVE) 07/17/21 19:20 Plan (1) Alcohol intoxication: Status: Acute Qualifiers: Complication of substance-induced condition: uncomplicated Qualified Code(s): F10.920 - Alcohol use, unspecified with intoxication, uncomplicated (2) Hypomagnesemia: Status: Acute (3) Hypokalemia: Status: Acute (4) Alcohol use disorder: Status: Acute (5) HTN (hypertension): Status: Acute Qualifiers: Hypertension type: primary hypertension Qualified Code(s): I10 - Essential (primary) hypertension
--- NOTE | 2021-07-19 13:54 | W.DIS.FURT ---
Summary of Discharge Discharge Summary of Date Date of Exam: 07/19/21 Admission Date Date of Admission: 07/17/21 Admission Diagnosis Hospital Course: * Patient was admitted for alcohol intoxication for detox. He left AMA. Vital Signs: Vital Signs (72 hours) 07/17/21 18:55 07/17/21 20:00 07/17/21 21:00 Temperature 98 F 97.7 F Pulse Rate [Left Radial] 84 81 Respiratory Rate 20 18 Blood Pressure [Left Arm] 126/81 96/53 117/60 Blood Pressure [Right Arm] O2 Sat by Pulse Oximetry 96 94 L 07/18/21 00:00 07/18/21 04:00 07/18/21 08:00 Temperature 97.7 F 97.6 F 97.9 F Pulse Rate [Left Radial] 77 77 94 H Respiratory Rate 18 17 20 Blood Pressure [Left Arm] 117/62 112/70 124/64 Blood Pressure [Right Arm] O2 Sat by Pulse Oximetry 95 96 95 07/18/21 12:00 07/18/21 16:00 07/18/21 20:00 Temperature 97.7 F 98.4 F 98.3 F Pulse Rate [Left Radial] 95 H 92 H 84 Respiratory Rate 20 20 18 Blood Pressure [Left Arm] 138/74 156/74 133/65 Blood Pressure [Right Arm] O2 Sat by Pulse Oximetry 97 93 L 95 07/19/21 00:00 07/19/21 04:00 07/19/21 08:00 Temperature 98.0 F 97.6 F 98.8 F Pulse Rate [Left Radial] 76 74 82 Respiratory Rate 18 18 20 Blood Pressure [Left Arm] 137/83 129/91 Blood Pressure [Right Arm] 155/70 O2 Sat by Pulse Oximetry 96 95 98 Labs: Laboratory Last Values WBC 7.8 X10^3/uL (3.6-10.0) 07/19/21 05:50 RBC 3.96 X10^6/uL (4.7-6.0) L 07/19/21 05:50 Hgb 13.2 g/dL (13.5-18.0) L 07/19/21 05:50 Hct 38.8 % (42.0-54.0) L 07/19/21 05:50 MCV 97.9 fL (80.0-100.0) 07/19/21 05:50 MCH 33.5 pg (27.0-34.0) 07/19/21 05:50 MCHC 34.2 g/dL (33.0-35.0) 07/19/21 05:50 RDW 16.4 % (11.6-16.5) 07/19/21 05:50 Plt Count 401 X10^3/uL (150.0-450.0) 07/19/21 05:50 MPV 8.3 fL (7.4-11.0) 07/19/21 05:50 Neut % (Auto) 60.8 % (42.0-75.0) 07/19/21 05:50 Lymph % (Auto) 23.4 % (21.0-51.0) 07/19/21 05:50 [place] % (Auto) 9.9 % (0.0-13.0) 07/19/21 05:50 Eos % (Auto) 4.9 % (0.9-2.9) H 07/19/21 05:50 Baso % (Auto) 1.0 % (0.2-1.0) 07/19/21 05:50 Neut # (Auto) 4.7 x10^3/uL (2.2-4.8) 07/19/21 05:50 Lymph # (Auto) 1.8 X10^3/uL (1.3-2.9) 07/19/21 05:50 [place] # (Auto) 0.8 x10^3/uL (0.3-0.8) 07/19/21 05:50 Eos # (Auto) 0.4 x10^3/uL (0.0-0.2) H 07/19/21 05:50 Baso # (Auto) 0.1 X10^3/uL (0.0-0.1) 07/19/21 05:50 Absolute Nucleated RBC 0.1 /100WBC 07/19/21 05:50 Sodium 138 mmol/L (136-145) 07/19/21 05:50 Corrected Sodium TNP 07/19/21 05:50 Potassium 3.4 mmol/L (3.5-5.1) L 07/19/21 05:50 Chloride 101 mmol/L (98-107) 07/19/21 05:50 Carbon Dioxide 27.4 mmol/L (21-32) 07/19/21 05:50 BUN 8 mg/dL (7-18) 07/19/21 05:50 Creatinine 0.74 mg/dL (0.70-1.30) 07/19/21 05:50 Est GFR (MDRD) Af Amer > 60 (>60) 07/19/21 05:50 Est GFR (MDRD) Non-Af > 60 (>60) 07/19/21 05:50 Glucose 103 mg/dL (65-99) H 07/19/21 05:50 Calcium 8.7 mg/dL (8.5-10.1) 07/19/21 05:50 Corrected Calcium TNP 07/19/21 05:50 Magnesium 2.2 mg/dL (1.7-2.9) 07/19/21 05:50 Total Bilirubin 1.00 mg/dL (0.2-1.0) 07/19/21 05:50 AST 165 Units/L (15-37) H 07/19/21 05:50 ALT 228 Units/L (12-78) H 07/19/21 05:50 Alkaline Phosphatase 73 Units/L (46-116) 07/19/21 05:50 Total Protein 7.9 g/dL (6.4-8.2) 07/19/21 05:50 Albumin 3.6 g/dL (3.4-5.0) 07/19/21 05:50 Globulin 4.3 g/dL (2.5-4.5) 07/19/21 05:50 Albumin/Globulin Ratio 0.8 Ratio (1.1-2.1) L 07/19/21 05:50 Specimen Type Clean catch urine 07/17/21 20:39 Urine Color Lanny (YELLOW) 07/17/21 20:39 Urine Appearance Clear (CLEAR) 07/17/21 20:39 Urine pH 5.0 (5.0 - 8.0) 07/17/21 20:39 Ur Specific [place] 1.025 (1.000-1.030) 07/17/21 20:39 Urine Protein 2+ (NEGATIVE) 07/17/21 20:39 Urine Glucose (UA) Negative (NEGATIVE) 07/17/21 20:39 Urine Ketones Negative (NEGATIVE) 07/17/21 20:39 Urine Blood Negative (NEGATIVE) 07/17/21 20:39 Urine Nitrite Negative (NEGATIVE) 07/17/21 20:39 Urine Bilirubin Negative (NEGATIVE) 07/17/21 20:39 Urine Urobilinogen 2+ (NORMAL) 07/17/21 20:39 Ur Leukocyte Esterase Negative (NEGATIVE) 07/17/21 20:39 Urine RBC 0-2 /HPF (0-3) 07/17/21 20:39 Urine WBC 0-2 /HPF (0-5) 07/17/21 20:39 Ur Squamous Epith Cells Few /HPF (NEGATIVE) 07/17/21 20:39 Urine Bacteria Trace /HPF (NEGATIVE) 07/17/21 20:39 Hyaline Casts Numerous /LPF (NEGATIVE) 07/17/21 20:39 Urine Mucus Many /HPF (NEGATIVE) 07/17/21 20:39 Ur Culture Indicated? No/not indicated 07/17/21 20:39 Urine Opiates Screen Positive (NEG=<300) 07/17/21 20:39 Urine Methadone Screen Negative (NEG=<300) 07/17/21 20:39 Ur Barbiturates Screen Negative (NEG=<200) 07/17/21 20:39 Ur Phencyclidine Scrn Negative (NEG=<25) 07/17/21 20:39 Ur Amphetamines Screen Negative (NEG=<1000) 07/17/21 20:39 U Benzodiazepines Scrn Positive (NEG=<200) 07/17/21 20:39 Urine Cocaine Screen Negative (NEG=<300) 07/17/21 20:39 U Marijuana (THC) Screen Negative (NEG=<50) 07/17/21 20:39 Ethyl Alcohol mg/dL 264 mg/dL (0-19.9) H 07/17/21 19:18 SARS CoV-2 RNA Rapid HIWOT Negative (NEGATIVE) 07/17/21 19:20 Reason For Visit: ALCOHOL WITHDRAWAL, HALLUCINATIONS Discharge Date Discharge Date: 07/19/21 Discharge Diagnosis All Active Problems (Updated 07/18/21 @ 10:46 by Zahraa Live) Alcohol intoxication (Acute) Hypomagnesemia (Acute) Hypokalemia (Acute) HTN (hypertension) (Acute) Leukocytosis (Acute) Rhabdomyolysis (Acute) Hypokalemia due to excessive gastrointestinal loss of potassium (Acute) Cough (Acute) Alcohol use disorder (Acute) Plan of Treatment: Continue with present treatment and follow up plan. Pt is to keep follow up appointment as instructed and take medications as ordered. Discharge Medications Discharge Medications: No Known Drug Allergies Allergy (Verified 02/11/21 13:01) Discharge Disposition Discharge Disposition: Patient left AMA Discharge Plan Discharge Plan Hospital Course: * Patient was admitted for alcohol intoxication for detox. He left AMA. Patient Disposition: AGAINST MEDICAL ADVICE Condition: Stable Health Concerns: Post Hospitalization: new medications and changes needed to prevent readmission or further decline. Pt educated and given instructions on all concerns. Plan of Treatment: Continue with present treatment and follow up plan. Pt is to keep follow up appointment as instructed and take medications as ordered. Prescriptions: No Action metoprolol succinate 100 mg tablet extended release 24 hr 100 mg PO DAILY 30 Days RF: 0 amlodipine 10 mg tablet 10 mg PO DAILY Qty: 30 RF: 0 lisinopril 20 mg tablet 20 mg PO DAILY Qty: 30 RF: 0 Follow ups/Referrals Follow ups/Referrals: JOHANA WOODWARD [Primary Care Provider] - 1 WEEK
[2021-07-20] MEDS ORDERED: PHENOBARBITAL TAB 15 MG (16.2MG) PO SCH (21:00)
== END 2021-07-19 12:05 | disposition left against medical advice (07) ==
LOC: MED/SURG
PROVIDERS: ADMIT Family Medicine; ATTEND Family Medicine

== ENCOUNTER 2021-10-01 12:14 | Observation (INO) ==
[2021-10-01] MEDS ORDERED: PHENOBARBITAL SODIUM INJ 65 MG VIAL IM PRN (17:37)
[2021-10-01] MEDS ORDERED: MOTRIN TAB 800 MG PO PRN (17:37)
[2021-10-01] MEDS ORDERED: MILK OF MAGNESIA PO PRN (17:37)
[2021-10-01] MEDS ORDERED: MAALOX or MYLANTA PO PRN (17:37)
[2021-10-01] MEDS ORDERED: APLISOL ID ONE (17:37)
[2021-10-01] MEDS ORDERED: KAOPECTATE (NEW FORMULA) PO PRN (17:37)
[2021-10-01 18:09] LABS: BASOPHILS # (AUTO) 0.1 X10^3/uL (0.0-0.1); BASOPHILS % (AUTO) 0.9 % (0.2-1.0); EOSINOPHILS # (AUTO) 0.5 x10^3/uL (0.0-0.2); EOSINOPHILS % (AUTO) 5.3 % (0.9-2.9); HEMATOCRIT 33.4 % (42.0-54.0); HEMOGLOBIN 11.4 g/dL (13.5-18.0); LYMPHOCYTES # (AUTO) 1.8 X10^3/uL (1.3-2.9); LYMPHOCYTES % (AUTO) 20.3 % (21.0-51.0); MEAN CORPUSCULAR HEMOGLOBIN 33.4 pg (27.0-34.0); MEAN CORPUSCULAR HGB CONC 34.1 g/dL (33.0-35.0); MEAN CORPUSCULAR VOLUME 98.1 fL (80.0-100.0); MEAN PLATELET VOLUME 8.2 fL (7.4-11.0); MONOCYTES # (AUTO) 0.7 x10^3/uL (0.3-0.8); MONOCYTES % (AUTO) 8.4 % (0.0-13.0); NEUTROPHILS # (AUTO) 5.8 x10^3/uL (2.2-4.8); NEUTROPHILS % (AUTO) 65.1 % (42.0-75.0); RED BLOOD COUNT 3.41 X10^6/uL (4.7-6.0); RED CELL DISTRIBUTION WIDTH 17.1 % (11.6-16.5); WHITE BLOOD COUNT 8.9 X10^3/uL (3.6-10.0)
[2021-10-01 18:10] VITALS: BMI 36.4
[2021-10-01] MEDS: MAGNESIUM SULFATE 1 GRAM/100 mL PREMIX 1 G/100 ML BAG IV SCH ×2 (18:26→21:12)
[2021-10-01] MEDS: PHENOBARBITAL TAB 30 MG (32.4MG) PO SCH ×2 (18:26→21:12)
[2021-10-01] MEDS: THIAMINE HCL INJ IM SCH (18:27)
[2021-10-01] MEDS: LIBRIUM PO PRN (18:36)
--- NOTE | 2021-10-01 19:27 | RAD ---
HISTORYDetox Relevant Clinical InformationSTUDYCHVALERIE JIM/MAYELIN [id number]/02/2021.FINDINGSThe trachea is midline. The cardiac silhouette is unremarkable. The lungs are clear without focal infiltrate or effusion. The bony thorax is unremarkable.IMPRESSIONNo acute cardiopulmonary findings .Electronically signed by: Clemente Whittaker (Oct 01, 2021 19:25:23)
[2021-10-01] MEDS: AMBIEN PO SCH (21:11)
[2021-10-02] MEDS: MAGNESIUM SULFATE 1 GRAM/100 mL PREMIX 1 G/100 ML BAG IV SCH ×3 (05:31→21:34)
[2021-10-02 06:00] LABS: ALANINE AMINOTRANSFERASE 146 Units/L (12-78); ALKALINE PHOSPHATASE 73 Units/L (46-116); ASPARTATE AMINO TRANSFERASE 95 Units/L (15-37); BLOOD UREA NITROGEN 13 mg/dL (7-18); CALCIUM 8.7 mg/dL (8.5-10.1); CARBON DIOXIDE 29.9 mmol/L (21-32); CHLORIDE 102 mmol/L (98-107); COR CA(FOR HYPOALB) 9.5 mg/dL (8.5-10.1); SODIUM 138 mmol/L (136-145); TOTAL PROTEIN 6.4 g/dL (6.4-8.2); eGFR NON BLACK RACES > 60 (>60)
[2021-10-02 06:07] LABS: BASOPHILS # (AUTO) 0.1 X10^3/uL (0.0-0.1); EOSINOPHILS # (AUTO) 0.4 x10^3/uL (0.0-0.2); EOSINOPHILS % (AUTO) 5.4 % (0.9-2.9); HEMATOCRIT 31.3 % (42.0-54.0); HEMOGLOBIN 10.8 g/dL (13.5-18.0); LYMPHOCYTES # (AUTO) 1.5 X10^3/uL (1.3-2.9); LYMPHOCYTES % (AUTO) 19.7 % (21.0-51.0); MEAN CORPUSCULAR HEMOGLOBIN 34.1 pg (27.0-34.0); MEAN CORPUSCULAR HGB CONC 34.7 g/dL (33.0-35.0); MEAN CORPUSCULAR VOLUME 98.3 fL (80.0-100.0); MEAN PLATELET VOLUME 8.4 fL (7.4-11.0); MONOCYTES # (AUTO) 0.9 x10^3/uL (0.3-0.8); MONOCYTES % (AUTO) 11.2 % (0.0-13.0); NEUTROPHILS # (AUTO) 4.8 x10^3/uL (2.2-4.8); NEUTROPHILS % (AUTO) 62.7 % (42.0-75.0); RED BLOOD COUNT 3.18 X10^6/uL (4.7-6.0); RED CELL DISTRIBUTION WIDTH 17.3 % (11.6-16.5); WHITE BLOOD COUNT 7.7 X10^3/uL (3.6-10.0)
[2021-10-02] MEDS: LIBRIUM PO PRN ×2 (08:55→15:12)
[2021-10-02] MEDS: PHENOBARBITAL TAB 30 MG (32.4MG) PO SCH ×4 (08:55→20:39)
[2021-10-02] MEDS: THIAMINE HCL INJ IM SCH (09:01)
[2021-10-02] MEDS ORDERED: LEXAPRO ONE (14:51)
[2021-10-02] MEDS ORDERED: ZESTRIL TAB 10 MG ONE (14:54)
[2021-10-02] MEDS: LEXAPRO PO SCH (15:09)
[2021-10-02] MEDS: NORVASC TAB 10 MG PO SCH (15:09)
[2021-10-02] MEDS: ZESTRIL TAB 20 MG PO SCH (15:12)
[2021-10-02 20:21] LABS: BILIRUBIN,URINE NEGATIVE (NEGATIVE); BLOOD/HEMOGLOBIN,URINE NEGATIVE (NEGATIVE); GLUCOSE, URINE NEGATIVE (NEGATIVE); KETONES,URINE NEGATIVE (NEGATIVE); LEUKOCYTE ESTERASE ,URINE NEGATIVE (NEGATIVE); NITRITES,URINE NEGATIVE (NEGATIVE); PROTEIN,URINE NEGATIVE (NEGATIVE); UROBILINOGEN,URINE NORMAL (NORMAL)
[2021-10-02 20:24] LABS: APPEARANCE,URINE CLEAR (CLEAR); COLOR,URINE PALE YELLOW (YELLOW)
[2021-10-02] MEDS: AMBIEN PO SCH (20:39)
[2021-10-03] MEDS: MAGNESIUM SULFATE 1 GRAM/100 mL PREMIX 1 G/100 ML BAG IV SCH ×2 (05:13→13:45)
--- NOTE | 2021-10-03 08:30 | DR.H&P ---
H&P History & Physical for Day of: H&P Date: 10/01/21 Chief Complaint Chief Complaint: Alcohol detox Allergies Allergies Allergy/AdvReac Type Severity Reaction Status Date / Time No Known Drug Allergies Allergy Verified 02/11/21 13:01 History of Present Illness History of Present Illness: This is a 46-year-old white male well-known to me. He has no history of alcoholism. This is his fourth detox since February 2021. This time I have discussed a long-term program with him after with a getting detoxed in [place]. [facility] the [facility] is [facility]. At this time he is not having any visual or audible hallucinations. He does have some minor trembling other than that he has no visible signs of acute alcohol detox. Past Medical History Past Medical History: Depression, Migraines, Headaches and Hypertension Past Surgical History Surgical History: Ortho Surgery Family History Family Medical History: MS and Hypertension Social History Does patient currently use any type of tobacco product: Yes Have you used tobacco products in the last 12 months: Yes Type of Tobacco Use: Cigarettes Does any household member use tobacco: No Alcohol Use: Heavy and DAILY Drug Use: Prescription Drugs Medications Home Medications: No Known Drug Allergies Allergy (Verified 02/11/21 13:01) CONTINUE taking the following medications escitalopram oxalate 10 mg tablet 1 tab PO DAILY 10/02/21 [History] Labs Result Diagrams: 10/02/21 05:33 10/02/21 05:33 Labs: Laboratory WBC 7.7 X10^3/uL (3.6-10.0) 10/02/21 05:33 RBC 3.18 X10^6/uL (4.7-6.0) L 10/02/21 05:33 Hgb 10.8 g/dL (13.5-18.0) L 10/02/21 05:33 Hct 31.3 % (42.0-54.0) L 10/02/21 05:33 MCV 98.3 fL (80.0-100.0) 10/02/21 05:33 MCH 34.1 pg (27.0-34.0) H 10/02/21 05:33 MCHC 34.7 g/dL (33.0-35.0) 10/02/21 05:33 RDW 17.3 % (11.6-16.5) H 10/02/21 05:33 Plt Count 254 X10^3/uL (150.0-450.0) 10/02/21 05:33 MPV 8.4 fL (7.4-11.0) 10/02/21 05:33 Neut % (Auto) 62.7 % (42.0-75.0) 10/02/21 05:33 Lymph % (Auto) 19.7 % (21.0-51.0) L 10/02/21 05:33 [place] % (Auto) 11.2 % (0.0-13.0) 10/02/21 05:33 Eos % (Auto) 5.4 % (0.9-2.9) H 10/02/21 05:33 Baso % (Auto) 1.0 % (0.2-1.0) 10/02/21 05:33 Neut # (Auto) 4.8 x10^3/uL (2.2-4.8) 10/02/21 05:33 Lymph # (Auto) 1.5 X10^3/uL (1.3-2.9) 10/02/21 05:33 [place] # (Auto) 0.9 x10^3/uL (0.3-0.8) H 10/02/21 05:33 Eos # (Auto) 0.4 x10^3/uL (0.0-0.2) H 10/02/21 05:33 Baso # (Auto) 0.1 X10^3/uL (0.0-0.1) 10/02/21 05:33 Absolute Nucleated RBC 0.1 /100WBC 10/02/21 05:33 Sodium 138 mmol/L (136-145) 10/02/21 05:33 Corrected Sodium TNP 10/02/21 05:33 Potassium 3.4 mmol/L (3.5-5.1) L 10/02/21 05:33 Chloride 102 mmol/L (98-107) 10/02/21 05:33 Carbon Dioxide 29.9 mmol/L (21-32) 10/02/21 05:33 BUN 13 mg/dL (7-18) 10/02/21 05:33 Creatinine 0.80 mg/dL (0.70-1.30) 10/02/21 05:33 Est GFR (MDRD) Af Amer > 60 (>60) 10/02/21 05:33 Est GFR (MDRD) Non-Af > 60 (>60) 10/02/21 05:33 Glucose 107 mg/dL (65-99) H 10/02/21 05:33 Calcium 8.7 mg/dL (8.5-10.1) 10/02/21 05:33 Corrected Calcium 9.5 mg/dL (8.5-10.1) 10/02/21 05:33 Total Bilirubin 0.50 mg/dL (0.2-1.0) 10/02/21 05:33 AST 95 Units/L (15-37) H 10/02/21 05:33 ALT 146 Units/L (12-78) H 10/02/21 05:33 Alkaline Phosphatase 73 Units/L (46-116) 10/02/21 05:33 Total Protein 6.4 g/dL (6.4-8.2) 10/02/21 05:33 Albumin 3.0 g/dL (3.4-5.0) L 10/02/21 05:33 Globulin 3.4 g/dL (2.5-4.5) 10/02/21 05:33 Albumin/Globulin Ratio 0.9 Ratio (1.1-2.1) L 10/02/21 05:33 Specimen Type Clean catch urine 10/02/21 19:01 Urine Color Pale yellow (YELLOW) 10/02/21 19:01 Urine Appearance Clear (CLEAR) 10/02/21 19:01 Urine pH 7.0 (5.0 - 8.0) 10/02/21 19:01 Ur Specific [place] 1.010 (1.000-1.030) 10/02/21 19:01 Urine Protein Negative (NEGATIVE) 10/02/21 19:01 Urine Glucose (UA) Negative (NEGATIVE) 10/02/21 19: Urine Ketones Negative (NEGATIVE) 10/02/21 19: Urine Blood Negative (NEGATIVE) 10/02/21 19:01 Urine Nitrite Negative (NEGATIVE) 10/02/21 19:01 Urine Bilirubin Negative (NEGATIVE) 10/02/21 19:01 Urine Urobilinogen Normal (NORMAL) 10/02/21 19:01 Ur Leukocyte Esterase Negative (NEGATIVE) 10/02/21 19:01 Urine Opiates Screen Negative (NEG=<300) 10/02/21 19:01 Urine Methadone Screen Negative (NEG=<300) 10/02/21 19:01 Ur Barbiturates Screen Positive (NEG=<200) 10/02/21 19:01 Ur Phencyclidine Scrn Negative (NEG=<25) 10/02/21 19:01 Ur Amphetamines Screen Negative (NEG=<1000) 10/02/21 19:01 U Benzodiazepines Scrn Positive (NEG=<200) 10/02/21 19:01 Urine Cocaine Screen Negative (NEG=<300) 10/02/21 19:01 U Marijuana (THC) Screen Negative (NEG=<50) 10/02/21 19:01 Ethyl Alcohol mg/dL 155 mg/dL (0-19.9) H 10/01/21 17:55 SARS-CoV-2 (PCR) Negative (NEGATIVE) 10/01/21 18:20 Physical Exam Vital Signs: Temperature 98.1 F Pulse Rate [Left Radial] 76 Respiratory Rate 20 Blood Pressure [Right Arm] 156/94 O2 Sat by Pulse Oximetry 93 Oriented: Normal, Time, Person and Place Eyes: Normal Ear: Normal Nose: Normal Throat: Normal Respiratory: Clear Throughout and Diminished Throughout Cardiovascular: Normal : Normal Auscultation: Bowel Sounds: Normal Palpation: Normal Tenderness: Normal Skin: Normal Musculoskeletal: Back:Lumbar Psychiatric: Anxiety Affect: Anxious Speech Pattern: Clear and Appropriate Assessment/Plan (1) Alcohol intoxication: Qualifiers: Complication of substance-induced condition: uncomplicated Qualified Code(s): F10.920 - Alcohol use, unspecified with intoxication, uncomplicated Status: Acute Plan: Alcohol detox protocol. (2) Alcohol use disorder: Status: Acute Plan: Acute alcohol detoxification alcoholic detox protocol. Then plans for inpatient treatment in [facility] in [place]. (3) Hypokalemia: Status: Acute Plan: Potassium replacement protocol. Review H&P Reviewed: Yes Patient was examined?: Yes
--- NOTE | 2021-10-03 08:40 | PCM.PROG ---
Progress Note Progress Note for Day of Date of Exam: 10/02/21 Subjective Subjective: Patient is alert and awake this morning. He has no nausea vomiting or diarrhea at this time. Still having some minor trembling of his hands but nothing acute. He still has no audible visual hallucinations. No new complaints this morning from the patient. Past Medical Family Social History Allergies: Allergies No Known Drug Allergies Allergy (Verified 02/11/21 13:01) Review of Systems ROS: No change since H&P Vital Signs and I&O's Vital Signs: Temperature 98.1 F Pulse Rate [Left Radial] 76 Respiratory Rate 20 Blood Pressure [Right Arm] 156/94 O2 Sat by Pulse Oximetry 93 Intake and Output: Intake & Output 09/30/21 10/01/21 10/02/21 10/03/21 11:59 11:59 11:59 11:59 Intake Total 1999 1520 / 1520 Output Total 0 / 0 Balance 1999 1520 / 1520 Physical Exam Oriented: Normal, Time, Person and Place Eyes: Normal Ear: Normal Nose: Normal Throat: Normal Respiratory: Normal Cardiovascular: Normal : Normal Auscultation: Bowel Sounds: Normal Palpation: Normal Tenderness: Normal Skin: Normal Musculoskeletal: Back:Lumbar Psychiatric: Anxiety Affect: Anxious Speech Pattern: Clear and Appropriate Laboratory and Diagnostics Result Diagrams: 10/02/21 05:33 10/02/21 05:33 Labs: Laboratory WBC 7.7 X10^3/uL (3.6-10.0) 10/02/21 05:33 RBC 3.18 X10^6/uL (4.7-6.0) L 10/02/21 05:33 Hgb 10.8 g/dL (13.5-18.0) L 10/02/21 05:33 Hct 31.3 % (42.0-54.0) L 10/02/21 05:33 MCV 98.3 fL (80.0-100.0) 10/02/21 05:33 MCH 34.1 pg (27.0-34.0) H 10/02/21 05:33 MCHC 34.7 g/dL (33.0-35.0) 10/02/21 05:33 RDW 17.3 % (11.6-16.5) H 10/02/21 05:33 Plt Count 254 X10^3/uL (150.0-450.0) 10/02/21 05:33 MPV 8.4 fL (7.4-11.0) 10/02/21 05:33 Neut % (Auto) 62.7 % (42.0-75.0) 10/02/21 05:33 Lymph % (Auto) 19.7 % (21.0-51.0) L 10/02/21 05:33 [place] % (Auto) 11.2 % (0.0-13.0) 10/02/21 05:33 Eos % (Auto) 5.4 % (0.9-2.9) H 10/02/21 05:33 Baso % (Auto) 1.0 % (0.2-1.0) 10/02/21 05:33 Neut # (Auto) 4.8 x10^3/uL (2.2-4.8) 10/02/21 05:33 Lymph # (Auto) 1.5 X10^3/uL (1.3-2.9) 10/02/21 05:33 [place] # (Auto) 0.9 x10^3/uL (0.3-0.8) H 10/02/21 05:33 Eos # (Auto) 0.4 x10^3/uL (0.0-0.2) H 10/02/21 05:33 Baso # (Auto) 0.1 X10^3/uL (0.0-0.1) 10/02/21 05:33 Absolute Nucleated RBC 0.1 /100WBC 10/02/21 05:33 Sodium 138 mmol/L (136-145) 10/02/21 05:33 Corrected Sodium TNP 10/02/21 05:33 Potassium 3.4 mmol/L (3.5-5.1) L 10/02/21 05:33 Chloride 102 mmol/L (98-107) 10/02/21 05:33 Carbon Dioxide 29.9 mmol/L (21-32) 10/02/21 05:33 BUN 13 mg/dL (7-18) 10/02/21 05:33 Creatinine 0.80 mg/dL (0.70-1.30) 10/02/21 05:33 Est GFR (MDRD) Af Amer > 60 (>60) 10/02/21 05:33 Est GFR (MDRD) Non-Af > 60 (>60) 10/02/21 05:33 Glucose 107 mg/dL (65-99) H 10/02/21 05:33 Calcium 8.7 mg/dL (8.5-10.1) 10/02/21 05:33 Corrected Calcium 9.5 mg/dL (8.5-10.1) 10/02/21 05:33 Total Bilirubin 0.50 mg/dL (0.2-1.0) 10/02/21 05:33 AST 95 Units/L (15-37) H 10/02/21 05:33 ALT 146 Units/L (12-78) H 10/02/21 05:33 Alkaline Phosphatase 73 Units/L (46-116) 10/02/21 05:33 Total Protein 6.4 g/dL (6.4-8.2) 10/02/21 05:33 Albumin 3.0 g/dL (3.4-5.0) L 10/02/21 05:33 Globulin 3.4 g/dL (2.5-4.5) 10/02/21 05:33 Albumin/Globulin Ratio 0.9 Ratio (1.1-2.1) L 10/02/21 05:33 Specimen Type Clean catch urine 10/02/21 19:01 Urine Color Pale yellow (YELLOW) 10/02/21 19:01 Urine Appearance Clear (CLEAR) 10/02/21 19:01 Urine pH 7.0 (5.0 - 8.0) 10/02/21 19:01 Ur Specific [place] 1.010 (1.000-1.030) 10/02/21 19:01 Urine Protein Negative (NEGATIVE) 10/02/21 19:01 Urine Glucose (UA) Negative (NEGATIVE) 10/02/21 19:01 Urine Ketones Negative (NEGATIVE) 10/02/21 19: Urine Blood Negative (NEGATIVE) 10/02/21 19: Urine Nitrite Negative (NEGATIVE) 10/02/21 19:01 Urine Bilirubin Negative (NEGATIVE) 10/02/21 19:01 Urine Urobilinogen Normal (NORMAL) 10/02/21 19:01 Ur Leukocyte Esterase Negative (NEGATIVE) 10/02/21 19:01 Urine Opiates Screen Negative (NEG=<300) 10/02/21 19:01 Urine Methadone Screen Negative (NEG=<300) 10/02/21 19:01 Ur Barbiturates Screen Positive (NEG=<200) 10/02/21 19:01 Ur Phencyclidine Scrn Negative (NEG=<25) 10/02/21 19:01 Ur Amphetamines Screen Negative (NEG=<1000) 10/02/21 19:01 U Benzodiazepines Scrn Positive (NEG=<200) 10/02/21 19:01 Urine Cocaine Screen Negative (NEG=<300) 10/02/21 19:01 U Marijuana (THC) Screen Negative (NEG=<50) 10/02/21 19:01 Ethyl Alcohol mg/dL 155 mg/dL (0-19.9) H 10/01/21 17:55 SARS-CoV-2 (PCR) Negative (NEGATIVE) 10/01/21 18:20 Plan (1) Alcohol intoxication: Status: Acute Qualifiers: Complication of substance-induced condition: uncomplicated Qualified Code(s): F10.920 - Alcohol use, unspecified with intoxication, uncomplicated Narrative Support Text: Patient is tolerating alcohol detox at this time with no significant problems. Plan: Alcohol detox protocol. (2) Alcohol use disorder: Status: Acute Narrative Support Text: Patient is still wants to do the [facility] long-term treatment in [place] after the acute detox is over. Plan: Acute alcohol detoxification alcoholic detox protocol. Then plans for inpatient treatment in [facility] in [place]. (3) Hypokalemia: Status: Acute Narrative Support Text: Recheck potassium again tomorrow morning. Plan: Potassium replacement protocol.
--- NOTE | 2021-10-03 08:41 | PCM.PROG ---
Progress Note Subjective Subjective: Patient is alert and awake this morning. He has no nausea vomiting or diarrhea at this time. Still having some minor trembling of his hands but nothing acute. He still has no audible visual hallucinations. No new complaints this morning from the patient. Past Medical Family Social History Allergies: Allergies No Known Drug Allergies Allergy (Verified 02/11/21 13:01) Review of Systems ROS: No change since H&P Vital Signs and I&O's Vital Signs: Temperature 99.2 F Pulse Rate [Left Radial] 80 Respiratory Rate 18 Blood Pressure [Right Arm] 133/83 O2 Sat by Pulse Oximetry 96 Intake and Output: Intake & Output 09/30/21 10/01/21 10/02/21 10/03/21 11:59 11:59 11:59 11:59 Intake Total 1999 1520 / 1520 Output Total 0 / 0 Balance 1999 1520 / 1520 Physical Exam Oriented: Normal, Time, Person and Place Eyes: Normal Ear: Normal Nose: Normal Throat: Normal Respiratory: Normal Cardiovascular: Normal : Normal Auscultation: Bowel Sounds: Normal Tenderness: Normal Skin: Normal Musculoskeletal: Back:Lumbar Psychiatric: Anxiety Affect: Anxious Speech Pattern: Clear and Appropriate Laboratory and Diagnostics Result Diagrams: 10/02/21 05:33 10/02/21 05:33 Labs: Laboratory WBC 7.7 X10^3/uL (3.6-10.0) 10/02/21 05:33 RBC 3.18 X10^6/uL (4.7-6.0) L 10/02/21 05:33 Hgb 10.8 g/dL (13.5-18.0) L 10/02/21 05:33 Hct 31.3 % (42.0-54.0) L 10/02/21 05:33 MCV 98.3 fL (80.0-100.0) 10/02/21 05:33 MCH 34.1 pg (27.0-34.0) H 10/02/21 05:33 MCHC 34.7 g/dL (33.0-35.0) 10/02/21 05:33 RDW 17.3 % (11.6-16.5) H 10/02/21 05:33 Plt Count 254 X10^3/uL (150.0-450.0) 10/02/21 05:33 MPV 8.4 fL (7.4-11.0) 10/02/21 05:33 Neut % (Auto) 62.7 % (42.0-75.0) 10/02/21 05:33 Lymph % (Auto) 19.7 % (21.0-51.0) L 10/02/21 05:33 [place] % (Auto) 11.2 % (0.0-13.0) 10/02/21 05:33 Eos % (Auto) 5.4 % (0.9-2.9) H 10/02/21 05:33 Baso % (Auto) 1.0 % (0.2-1.0) 10/02/21 05:33 Neut # (Auto) 4.8 x10^3/uL (2.2-4.8) 10/02/21 05:33 Lymph # (Auto) 1.5 X10^3/uL (1.3-2.9) 10/02/21 05:33 [place] # (Auto) 0.9 x10^3/uL (0.3-0.8) H 10/02/21 05:33 Eos # (Auto) 0.4 x10^3/uL (0.0-0.2) H 10/02/21 05:33 Baso # (Auto) 0.1 X10^3/uL (0.0-0.1) 10/02/21 05:33 Absolute Nucleated RBC 0.1 /100WBC 10/02/21 05:33 Sodium 138 mmol/L (136-145) 10/02/21 05:33 Corrected Sodium TNP 10/02/21 05:33 Potassium 3.4 mmol/L (3.5-5.1) L 10/02/21 05:33 Chloride 102 mmol/L (98-107) 10/02/21 05:33 Carbon Dioxide 29.9 mmol/L (21-32) 10/02/21 05:33 BUN 13 mg/dL (7-18) 10/02/21 05:33 Creatinine 0.80 mg/dL (0.70-1.30) 10/02/21 05:33 Est GFR (MDRD) Af Amer > 60 (>60) 10/02/21 05:33 Est GFR (MDRD) Non-Af > 60 (>60) 10/02/21 05:33 Glucose 107 mg/dL (65-99) H 10/02/21 05:33 Calcium 8.7 mg/dL (8.5-10.1) 10/02/21 05:33 Corrected Calcium 9.5 mg/dL (8.5-10.1) 10/02/21 05:33 Total Bilirubin 0.50 mg/dL (0.2-1.0) 10/02/21 05:33 AST 95 Units/L (15-37) H 10/02/21 05:33 ALT 146 Units/L (12-78) H 10/02/21 05:33 Alkaline Phosphatase 73 Units/L (46-116) 10/02/21 05:33 Total Protein 6.4 g/dL (6.4-8.2) 10/02/21 05:33 Albumin 3.0 g/dL (3.4-5.0) L 10/02/21 05:33 Globulin 3.4 g/dL (2.5-4.5) 10/02/21 05:33 Albumin/Globulin Ratio 0.9 Ratio (1.1-2.1) L 10/02/21 05:33 Specimen Type Clean catch urine 10/02/21 19:01 Urine Color Pale yellow (YELLOW) 10/02/21 19:01 Urine Appearance Clear (CLEAR) 10/02/21 19:01 Urine pH 7.0 (5.0 - 8.0) 10/02/21 19:01 Ur Specific [place] 1.010 (1.000-1.030) 10/02/21 19:01 Urine Protein Negative (NEGATIVE) 10/02/21 19:01 Urine Glucose (UA) Negative (NEGATIVE) 10/02/21 19:01 Urine Ketones Negative (NEGATIVE) 10/02/21 19:01 Urine Blood Negative (NEGATIVE) 10/02/21 19: Urine Nitrite Negative (NEGATIVE) 10/02/21 19: Urine Bilirubin Negative (NEGATIVE) 10/02/21 19:01 Urine Urobilinogen Normal (NORMAL) 10/02/21 19:01 Ur Leukocyte Esterase Negative (NEGATIVE) 10/02/21 19:01 Urine Opiates Screen Negative (NEG=<300) 10/02/21 19:01 Urine Methadone Screen Negative (NEG=<300) 10/02/21 19:01 Ur Barbiturates Screen Positive (NEG=<200) 10/02/21 19:01 Ur Phencyclidine Scrn Negative (NEG=<25) 10/02/21 19:01 Ur Amphetamines Screen Negative (NEG=<1000) 10/02/21 19:01 U Benzodiazepines Scrn Positive (NEG=<200) 10/02/21 19:01 Urine Cocaine Screen Negative (NEG=<300) 10/02/21 19:01 U Marijuana (THC) Screen Negative (NEG=<50) 10/02/21 19:01 Ethyl Alcohol mg/dL 155 mg/dL (0-19.9) H 10/01/21 17:55 SARS-CoV-2 (PCR) Negative (NEGATIVE) 10/01/21 18:20 Plan (1) Alcohol intoxication: Status: Acute Qualifiers: Complication of substance-induced condition: uncomplicated Qualified Code(s): F10.920 - Alcohol use, unspecified with intoxication, uncomplicated Plan: Alcohol detox protocol. (2) Alcohol use disorder: Status: Acute Plan: Acute alcohol detoxification alcoholic detox protocol. Then plans for inpatient treatment in [facility]. (3) Hypokalemia: Status: Acute Plan: Potassium replacement protocol.
--- NOTE | 2021-10-03 08:45 | PCM.PROG ---
Progress Note Progress Note for Day of Date of Exam: 10/03/21 Subjective Subjective: Patient is alert and awake this morning. He has no nausea vomiting or diarrhea at this time. Still having some minor trembling of his hands but nothing acute. He still has no audible visual hallucinations. No new complaints this morning from the patient. The patient's blood pressure is noted to be elevated since yesterday. His blood pressure this morning is 156/94. I suspect it is a little high as he is going through some alcohol withdrawal at this time. We will keep an eye on it as his blood pressure normally runs okay at home. Past Medical Family Social History Allergies: Allergies No Known Drug Allergies Allergy (Verified 02/11/21 13:01) Review of Systems ROS: No change since H&P Vital Signs and I&O's Vital Signs: Temperature 99.2 F Pulse Rate [Left Radial] 80 Respiratory Rate 18 Blood Pressure [Right Arm] 133/83 O2 Sat by Pulse Oximetry 96 Intake and Output: Intake & Output 09/30/21 10/01/21 10/02/21 10/03/21 11:59 11:59 11:59 11:59 Intake Total 1999 1520 / 1520 Output Total 0 / 0 Balance 1999 1520 / 1520 Physical Exam Oriented: Normal, Time, Person and Place Eyes: Normal Ear: Normal Nose: Normal Throat: Normal Respiratory: Normal Cardiovascular: Normal : Normal Auscultation: Bowel Sounds: Normal Tenderness: Normal Skin: Normal Musculoskeletal: Back:Lumbar Psychiatric: Anxiety Mood Description: Calm Affect: Anxious Speech Pattern: Clear and Appropriate Laboratory and Diagnostics Result Diagrams: 10/02/21 05:33 10/02/21 05:33 Labs: Laboratory WBC 7.7 X10^3/uL (3.6-10.0) 10/02/21 05:33 RBC 3.18 X10^6/uL (4.7-6.0) L 10/02/21 05:33 Hgb 10.8 g/dL (13.5-18.0) L 10/02/21 05:33 Hct 31.3 % (42.0-54.0) L 10/02/21 05:33 MCV 98.3 fL (80.0-100.0) 10/02/21 05:33 MCH 34.1 pg (27.0-34.0) H 10/02/21 05:33 MCHC 34.7 g/dL (33.0-35.0) 10/02/21 05:33 RDW 17.3 % (11.6-16.5) H 10/02/21 05:33 Plt Count 254 X10^3/uL (150.0-450.0) 10/02/21 05:33 MPV 8.4 fL (7.4-11.0) 10/02/21 05:33 Neut % (Auto) 62.7 % (42.0-75.0) 10/02/21 05:33 Lymph % (Auto) 19.7 % (21.0-51.0) L 10/02/21 05:33 [place] % (Auto) 11.2 % (0.0-13.0) 10/02/21 05:33 Eos % (Auto) 5.4 % (0.9-2.9) H 10/02/21 05:33 Baso % (Auto) 1.0 % (0.2-1.0) 10/02/21 05:33 Neut # (Auto) 4.8 x10^3/uL (2.2-4.8) 10/02/21 05:33 Lymph # (Auto) 1.5 X10^3/uL (1.3-2.9) 10/02/21 05:33 [place] # (Auto) 0.9 x10^3/uL (0.3-0.8) H 10/02/21 05:33 Eos # (Auto) 0.4 x10^3/uL (0.0-0.2) H 10/02/21 05:33 Baso # (Auto) 0.1 X10^3/uL (0.0-0.1) 10/02/21 05:33 Absolute Nucleated RBC 0.1 /100WBC 10/02/21 05:33 Sodium 138 mmol/L (136-145) 10/02/21 05:33 Corrected Sodium TNP 10/02/21 05:33 Potassium 3.4 mmol/L (3.5-5.1) L 10/02/21 05:33 Chloride 102 mmol/L (98-107) 10/02/21 05:33 Carbon Dioxide 29.9 mmol/L (21-32) 10/02/21 05:33 BUN 13 mg/dL (7-18) 10/02/21 05:33 Creatinine 0.80 mg/dL (0.70-1.30) 10/02/21 05:33 Est GFR (MDRD) Af Amer > 60 (>60) 10/02/21 05:33 Est GFR (MDRD) Non-Af > 60 (>60) 10/02/21 05:33 Glucose 107 mg/dL (65-99) H 10/02/21 05:33 Calcium 8.7 mg/dL (8.5-10.1) 10/02/21 05:33 Corrected Calcium 9.5 mg/dL (8.5-10.1) 10/02/21 05:33 Total Bilirubin 0.50 mg/dL (0.2-1.0) 10/02/21 05:33 AST 95 Units/L (15-37) H 10/02/21 05:33 ALT 146 Units/L (12-78) H 10/02/21 05:33 Alkaline Phosphatase 73 Units/L (46-116) 10/02/21 05:33 Total Protein 6.4 g/dL (6.4-8.2) 10/02/21 05:33 Albumin 3.0 g/dL (3.4-5.0) L 10/02/21 05:33 Globulin 3.4 g/dL (2.5-4.5) 10/02/21 05:33 Albumin/Globulin Ratio 0.9 Ratio (1.1-2.1) L 10/02/21 05:33 Specimen Type Clean catch urine 10/02/21 19:01 Urine Color Pale yellow (YELLOW) 10/02/21 19:01 Urine Appearance Clear (CLEAR) 10/02/21 19:01 Urine pH 7.0 (5.0 - 8.0) 10/02/21 19:01 Ur Specific [place] 1.010 (1.000-1.030) 10/02/21 19:01 Urine Protein Negative (NEGATIVE) 10/02/21 19:01 Urine Glucose (UA) Negative (NEGATIVE) 10/02/21 19:01 Urine Ketones Negative (NEGATIVE) 10/02/21 19:01 Urine Blood Negative (NEGATIVE) 10/02/21 19: Urine Nitrite Negative (NEGATIVE) 10/02/21 19:01 Urine Bilirubin Negative (NEGATIVE) 10/02/21 19:01 Urine Urobilinogen Normal (NORMAL) 10/02/21 19:01 Ur Leukocyte Esterase Negative (NEGATIVE) 10/02/21 19:01 Urine Opiates Screen Negative (NEG=<300) 10/02/21 19:01 Urine Methadone Screen Negative (NEG=<300) 10/02/21 19:01 Ur Barbiturates Screen Positive (NEG=<200) 10/02/21 19:01 Ur Phencyclidine Scrn Negative (NEG=<25) 10/02/21 19:01 Ur Amphetamines Screen Negative (NEG=<1000) 10/02/21 19:01 U Benzodiazepines Scrn Positive (NEG=<200) 10/02/21 19:01 Urine Cocaine Screen Negative (NEG=<300) 10/02/21 19:01 U Marijuana (THC) Screen Negative (NEG=<50) 10/02/21 19:01 Ethyl Alcohol mg/dL 155 mg/dL (0-19.9) H 10/01/21 17:55 SARS-CoV-2 (PCR) Negative (NEGATIVE) 10/01/21 18:20 Plan (1) Alcohol intoxication: Status: Resolved Qualifiers: Complication of substance-induced condition: uncomplicated Qualified Code(s): F10.920 - Alcohol use, unspecified with intoxication, uncomplicated Plan: Alcohol detox protocol. (2) Alcohol use disorder: Status: Acute Narrative Support Text: Patient still doing well at this time. I will plan on discharging him tomorrow if he still doing well and we are currently having arrangements made for him to go to [facility] emergency in [place] still. Plan: Acute alcohol detoxification alcoholic detox protocol. Then plans for inpatient treatment in [facility] in [place]. (3) Hypokalemia: Status: Acute Narrative Support Text: We will check a CMP on patient this morning Plan: Potassium replacement protocol.
[2021-10-03] MEDS ORDERED: MICRO K EXTEN CAP 10 MEQ PO PRN (08:58)
[2021-10-03] MEDS ORDERED: POTASSIUM CHL 40 MEQ/NS 0.45% 500 ML IV PRN (08:58)
[2021-10-03] MEDS ORDERED: POTASSIUM CHLORIDE LIQ 20 MEQ UDC PO PRN (08:58)
[2021-10-03] MEDS ORDERED: K-DUR TAB 20 MEQ PO PRN (08:58)
[2021-10-03] MEDS ORDERED: K-RIDER 10 MEQ/NS 100 ML 10 MEQ/100 ML BAG IV PRN (08:58)
[2021-10-03] MEDS ORDERED: POTASSIUM CHL 60 MEQ/NS 0.45% 500 ML IV PRN (08:58)
[2021-10-03] MEDS ORDERED: LEXAPRO PO SCH (09:00)
[2021-10-03 09:28] LABS: ALANINE AMINOTRANSFERASE 116 Units/L (12-78); ALBUMIN 3.2 g/dL (3.4-5.0); ALKALINE PHOSPHATASE 80 Units/L (46-116); ASPARTATE AMINO TRANSFERASE 71 Units/L (15-37); BLOOD UREA NITROGEN 8 mg/dL (7-18); CALCIUM 8.6 mg/dL (8.5-10.1); CHLORIDE 98 mmol/L (98-107); COR CA(FOR HYPOALB) 9.2 mg/dL (8.5-10.1); CREATININE 0.66 mg/dL (0.70-1.30); SODIUM 135 mmol/L (136-145); TOTAL PROTEIN 7.2 g/dL (6.4-8.2); eGFR NON BLACK RACES > 60 (>60)
[2021-10-03] MEDS ORDERED: LEXAPRO ONE (10:00)
[2021-10-03] MEDS ORDERED: TOPROL XL PO ONE (10:00)
[2021-10-03] MEDS ORDERED: ZESTRIL TAB 20 MG ONE (10:00)
[2021-10-03] MEDS: LEXAPRO PO SCH (10:04)
[2021-10-03] MEDS: THIAMINE HCL INJ IM SCH (10:05)
[2021-10-03] MEDS: NORVASC TAB 10 MG PO SCH (10:05)
[2021-10-03] MEDS: PHENOBARBITAL TAB 30 MG (32.4MG) PO SCH ×4 (10:05→20:08)
[2021-10-03] MEDS: TOPROL XL PO SCH (10:06)
[2021-10-03] MEDS: ZESTRIL TAB 20 MG PO SCH (10:06)
[2021-10-03] MEDS: KLOR-CON PO PRN (13:47)
[2021-10-03] MEDS: AMBIEN PO SCH (20:07)
[2021-10-04 05:06] LABS: BASOPHILS # (AUTO) 0.1 X10^3/uL (0.0-0.1); BASOPHILS % (AUTO) 0.9 % (0.2-1.0); EOSINOPHILS # (AUTO) 0.5 x10^3/uL (0.0-0.2); EOSINOPHILS % (AUTO) 6.1 % (0.9-2.9); HEMATOCRIT 35.3 % (42.0-54.0); LYMPHOCYTES # (AUTO) 1.7 X10^3/uL (1.3-2.9); LYMPHOCYTES % (AUTO) 20.5 % (21.0-51.0); MEAN CORPUSCULAR HEMOGLOBIN 33.2 pg (27.0-34.0); MEAN CORPUSCULAR HGB CONC 33.9 g/dL (33.0-35.0); MEAN CORPUSCULAR VOLUME 97.9 fL (80.0-100.0); MEAN PLATELET VOLUME 8.6 fL (7.4-11.0); MONOCYTES # (AUTO) 0.7 x10^3/uL (0.3-0.8); MONOCYTES % (AUTO) 8.6 % (0.0-13.0); NEUTROPHILS # (AUTO) 5.4 x10^3/uL (2.2-4.8); NEUTROPHILS % (AUTO) 63.9 % (42.0-75.0); WHITE BLOOD COUNT 8.5 X10^3/uL (3.6-10.0)
[2021-10-04 05:20] LABS: ALANINE AMINOTRANSFERASE 102 Units/L (12-78); ALBUMIN 3.4 g/dL (3.4-5.0); ALKALINE PHOSPHATASE 82 Units/L (46-116); ASPARTATE AMINO TRANSFERASE 65 Units/L (15-37); BLOOD UREA NITROGEN 17 mg/dL (7-18); CALCIUM 8.8 mg/dL (8.5-10.1); CARBON DIOXIDE 30.4 mmol/L (21-32); CHLORIDE 100 mmol/L (98-107); CREATININE 0.87 mg/dL (0.70-1.30); MAGNESIUM 2.2 mg/dL (1.7-2.9); SODIUM 138 mmol/L (136-145); TOTAL PROTEIN 7.5 g/dL (6.4-8.2); eGFR NON BLACK RACES > 60 (>60)
[2021-10-04] MEDS: KLOR-CON PO PRN (05:48)
[2021-10-04] MEDS ORDERED: LEXAPRO ONE (08:34)
[2021-10-04] MEDS ORDERED: ZESTRIL TAB 20 MG ONE (08:35)
[2021-10-04] MEDS ORDERED: TOPROL XL PO ONE (08:35)
[2021-10-04] MEDS: NORVASC TAB 10 MG PO SCH (08:37)
[2021-10-04] MEDS: THIAMINE HCL INJ IM SCH (08:37)
[2021-10-04] MEDS: ZESTRIL TAB 20 MG PO SCH (08:37)
[2021-10-04] MEDS: LEXAPRO PO SCH (08:37)
[2021-10-04] MEDS: TOPROL XL PO SCH (08:37)
[2021-10-04] MEDS: PHENOBARBITAL TAB 30 MG (32.4MG) PO SCH ×2 (08:37→13:39)
[2021-10-04] MEDS ORDERED: PHENOBARBITAL TAB 30 MG (32.4MG) PO SCH (17:00)
[2021-10-04 17:04] VITALS: BP 132/84
--- NOTE | 2021-10-12 11:23 | PCM.DCPLAN ---
DISCHARGE SUMMARY Admission Date Date of Admission: 10/01/21 Discharge Date Discharge Date: 10/04/21 Admission Diagnoses (1) Alcohol intoxication: Status: Resolved (2) Alcohol use disorder: Status: Acute (3) Hypokalemia: Status: Acute Discharge Diagnoses Discharge Diagnosis: 1. Alcohol detox resolved 2. Alcohol use disorder 3. Hypokalemia resolved 4. Hypertension Discharge Medications Discharge Medications: Home Medication List escitalopram oxalate 10 mg tablet 1 tab PO DAILY 10/02/21 [History] Prescriptions: Hospital Course Vital Signs: Temperature 98.0 F Pulse Rate [Left Radial] 77 Respiratory Rate 20 Blood Pressure [Right Arm] 132/84 O2 Sat by Pulse Oximetry 95 Latest Lab Results: Laboratory Last Values WBC 8.5 X10^3/uL (3.6-10.0) 10/04/21 04:15 RBC 3.60 X10^6/uL (4.7-6.0) L 10/04/21 04:15 Hgb 12.0 g/dL (13.5-18.0) L 10/04/21 04:15 Hct 35.3 % (42.0-54.0) L 10/04/21 04:15 MCV 97.9 fL (80.0-100.0) 10/04/21 04:15 MCH 33.2 pg (27.0-34.0) 10/04/21 04:15 MCHC 33.9 g/dL (33.0-35.0) 10/04/21 04:15 RDW 17.0 % (11.6-16.5) H 10/04/21 04:15 Plt Count 297 X10^3/uL (150.0-450.0) 10/04/21 04:15 MPV 8.6 fL (7.4-11.0) 10/04/21 04:15 Neut % (Auto) 63.9 % (42.0-75.0) 10/04/21 04:15 Lymph % (Auto) 20.5 % (21.0-51.0) L 10/04/21 04:15 Wayne % (Auto) 8.6 % (0.0-13.0) 10/04/21 04:15 Eos % (Auto) 6.1 % (0.9-2.9) H 10/04/21 04:15 Baso % (Auto) 0.9 % (0.2-1.0) 10/04/21 04:15 Neut # (Auto) 5.4 x10^3/uL (2.2-4.8) H 10/04/21 04:15 Lymph # (Auto) 1.7 X10^3/uL (1.3-2.9) 10/04/21 04:15 Wayne # (Auto) 0.7 x10^3/uL (0.3-0.8) 10/04/21 04:15 Eos # (Auto) 0.5 x10^3/uL (0.0-0.2) H 10/04/21 04:15 Baso # (Auto) 0.1 X10^3/uL (0.0-0.1) 10/04/21 04:15 Absolute Nucleated RBC 0.0 /100WBC 10/04/21 04:15 Sodium 138 mmol/L (136-145) 10/04/21 04:15 Corrected Sodium TNP 10/04/21 04:15 Potassium 3.7 mmol/L (3.5-5.1) 10/04/21 04:15 Chloride 100 mmol/L (98-107) 10/04/21 04:15 Carbon Dioxide 30.4 mmol/L (21-32) 10/04/21 04:15 BUN 17 mg/dL (7-18) 10/04/21 04:15 Creatinine 0.87 mg/dL (0.70-1.30) 10/04/21 04:15 Est GFR (MDRD) Af Amer > 60 (>60) 10/04/21 04:15 Est GFR (MDRD) Non-Af > 60 (>60) 10/04/21 04:15 Glucose 86 mg/dL (65-99) 10/04/21 04:15 Calcium 8.8 mg/dL (8.5-10.1) 10/04/21 04:15 Corrected Calcium TNP 10/04/21 04:15 Magnesium 2.2 mg/dL (1.7-2.9) 10/04/21 04:15 Total Bilirubin 0.70 mg/dL (0.2-1.0) 10/04/21 04:15 AST 65 Units/L (15-37) H 10/04/21 04:15 ALT 102 Units/L (12-78) H 10/04/21 04:15 Alkaline Phosphatase 82 Units/L (46-116) 10/04/21 04:15 Total Protein 7.5 g/dL (6.4-8.2) 10/04/21 04:15 Albumin 3.4 g/dL (3.4-5.0) 10/04/21 04:15 Globulin 4.1 g/dL (2.5-4.5) 10/04/21 04:15 Albumin/Globulin Ratio 0.8 Ratio (1.1-2.1) L 10/04/21 04:15 Specimen Type Clean catch urine 10/02/21 19:01 Urine Color Pale yellow (YELLOW) 10/02/21 19: Urine Appearance Clear (CLEAR) 10/02/21 19:01 Urine pH 7.0 (5.0 - 8.0) 10/02/21 19:01 Ur Specific [place] 1.010 (1.000-1.030) 10/02/21 19:01 Urine Protein Negative (NEGATIVE) 10/02/21 19:01 Urine Glucose (UA) Negative (NEGATIVE) 10/02/21 19:01 Urine Ketones Negative (NEGATIVE) 10/02/21 19: Urine Blood Negative (NEGATIVE) 10/02/21 19: Urine Nitrite Negative (NEGATIVE) 10/02/21 19: Urine Bilirubin Negative (NEGATIVE) 10/02/21 19:01 Urine Urobilinogen Normal (NORMAL) 10/02/21 19:01 Ur Leukocyte Esterase Negative (NEGATIVE) 10/02/21 19:01 Urine Opiates Screen Negative (NEG=<300) 10/02/21 19:01 Urine Methadone Screen Negative (NEG=<300) 10/02/21 19:01 Ur Barbiturates Screen Positive (NEG=<200) 10/02/21 19:01 Ur Phencyclidine Scrn Negative (NEG=<25) 10/02/21 19:01 Ur Amphetamines Screen Negative (NEG=<1000) 10/02/21 19:01 U Benzodiazepines Scrn Positive (NEG=<200) 10/02/21 19:01 Urine Cocaine Screen Negative (NEG=<300) 10/02/21 19:01 U Marijuana (THC) Screen Negative (NEG=<50) 10/02/21 19:01 Ethyl Alcohol mg/dL 155 mg/dL (0-19.9) H 10/01/21 17:55 SARS-CoV-2 (PCR) Negative (NEGATIVE) 10/01/21 18:20 HIV-1 Ab Confirm (Blot) TNP 10/01/21 18:20 HIV 1&2 Antibody Screen Negative (Negative) 10/01/21 18:20 Hospital Course: The patient had no significant problems after admission. He did report some anxieties but no visual or audible hallucinations this time his past admissions. I discussed with him long-term cessation of alcohol use and we have discussed a 2-month treatment facility in [place] in which he plans to attend after we get back his TB skin test HIV test. I will follow-up with him as outpatient and continue to encourage him to seek long-term treatment for alcoholism.
== END 2021-10-04 18:03 | disposition home or self-care (01) ==
LOC: MED/SURG
PROVIDERS: ADMIT Family Medicine; ATTEND Family Medicine
DX: F10.129 Alcohol abuse with intoxication, unspecified; G25.2 Other specified forms of tremor; E87.6 Hypokalemia; Z86.69 Personal history of other diseases of the nervous system and sense organs; F32.A Depression, unspecified; Z72.0 Tobacco use; I10 Essential (primary) hypertension